=== PATIENT | male | born 1960 | race Caucasian/White ===

== ENCOUNTER 2019-04-09 17:37 | Emergency (ER) | payer BC, SELFPAY ==
[2019-04-09 17:41] VITALS: BP 138/82; PULSE 86; RESP 18; TEMP 36.5; O2SAT 97
--- NOTE | 2019-04-09 18:20 | ED.GENADUL_ITS ---
Discharge Plan Disposition Patient Disposition: HOME Condition: Fair Discharge Details Chief Complaint: Laceration Clinical Impression: Foreign body (FB) in soft tissue Primary Care Provider: Jayy Flynn ED Provider: Melyssa Chavez Home Meds and New Rx's Prescriptions: New cephalexin [Keflex] 500 mg capsule 500 mg PO QID Qty: 20 RF: 0 Continued albuterol sulfate [Ventolin HFA] 8 GM HFA aerosol inhaler 2 puff Inhalation Q6H PRN Qty: 2 RF: 6 Discharge Instructions Instructions: Soft Tissue Foreign Body (ED) Additional Instructions: Please keep wound clean, dry, covered. Monitor for signs of infection. Redness, warmth, drainage, increased pain, fever/chills. Please keep current dressing on for the next 24 hours and if that time he may cover with a Band-Aid. He will need follow-up with orthopedics, number listed below please call Friday to schedule follow-up appointment. Please take antibiotics as prescribed to help prevent infection. Referrals: Jayy Flynn, [Primary Care Provider] - Bar Parham MD [ [facility] STAFF PHYSICIAN] - Discharge Data Discharge Date/Time-TO BE ENTERED AT DEPARTURE: 04/09/19 20:17 Medical Decision Making Patient 38-year-old [id number] male presenting today with chief complaint of left forearm pain. He reports a prior to arrival he was hammering a nail piece of metal flew off and impaled him in the left forearm. Unknown tetanus status. Patient denies other injury the time of the incident. No numbness or weakness. On exam, he has a 1 cm linear laceration running horizontally across the base proximal ulnar side of the anterior forearm. Foreign body is palpable moving superior medial to this, patient is very tender in this area and bleeding began once compression was removed. Patient given Tylenol and ibuprofen for discomfort, we will send her over for an x-ray to evaluate foreign body. Tetanus updated today 4 mm foreign body noted on x-ray by radiologist. Patient and I discussed options for removal. We discussed the risk/benefits of exploration attempt to remove this. He voiced understanding and wished to proceed. Procedure note: Using standard sterile technique, 1% lidocaine with epinephrine was used to infiltrate the area. 5 cc was used. The sufficiently anesthetized the area. The area was then prepped and copiously irrigated with sterile saline. I attempted to remove foreign body but was unable to palpate this there externally or internally with fine forceps. Consult with Dr. Parham who advised to leave the foreign body in place, placed on antibiotics. Advised the patient may or may not need this removed at a future date depending on how bothersome this is to the patient. I discussed this plan with the patient was in agreement. He was given strict return precautions. In particular, we discussed signs and symptoms of infection that should prompt urgent evaluation once again. Advised he will need follow-up with orthopedics. We discussed activities to avoid. All his questions and concerns were addressed, he is in agreement this plan HPI General Mode of arrival: ambulatory . Date/Time Provider Initiated Documentation: 04/09/19 17:45 . Limitations to Documentation: no limitations . Information obtained by: patient, family (accompanied by ) and RN notes reviewed . History of Present Illness 58 year old M presents to the emergency department with the chief complaint of FB right forearm, described as moderate, with intensity rated at 4. Quality is described as burning, and is localized to the right and upper extremity. Patient reports no radiation. Patient started experiencing this minute(s) and it has been constant. No relieving factors improve symptom(s), No exacerbating factors reported . Patient notes no other symptoms.. Patient did receive the following treatments prior to arrival, none Related Data Home Medications Medication Instructions Recorded Confirmed albuterol sulfate [Ventolin HFA] 2 puff INHALATION Q6H PRN #2 12/26/15 04/09/19 inhaler cephalexin [Keflex] 500 mg PO QID #20 cap 04/09/19 Previous Rx's Medication Instructions Recorded cephalexin [Keflex] 500 mg PO QID #20 cap 04/09/19 Allergies Allergy/AdvReac Type Severity Reaction Status Date / Time diphenhydramine AdvReac Mild SHAKEY Unverified 04/09/19 17:45 General Stated Complaint: Laceration BRAD: 4 Review of Systems Constitutional Reports as per HPI, Denies chills and Denies fever(s) Musculoskeletal Reports as per HPI Integumentary/Breasts Reports as per HPI Neurologic Reports as per HPI, Denies sensory deficit and Denies paresthesias PFSH Surgical History Arthroplasty of knee NECK SURGERY Family History Mother Personal history of malignant neoplasm Heart disease Hyperlipidemia Father Heart disease Myocardial infarction Sister No problems noted. Sister No problems noted. Brother No problems noted. Brother No problems noted. Brother No problems noted. Grandfather Diabetes Heart disease Grandfather No problems noted. Grandmother Heart disease Grandmother No problems noted. Son Heart disease Social History Smoking/Tobacco Use Status: Never Drug use: Never Do you feel safe at home: Yes Do you feel safe in your relationship?: Yes Exam Const General: cooperative, healthy appearing, comfortable, no acute distress and well developed Nutritional Appearance: average body habitus and well nourished Orientation: alert and awake Resp Effort & Inspection: normal respiratory effort, able to speak in complete sentences and no respiratory distress Cardio Rate: regular rate Rhythm: regular rhythm Skin Trauma: laceration (5mm laceration anterior left forearm) Neuro General: alert and awake Cognition: normal cognition Speech: speech normal Gait: normal gait Sensory Exam: no sensory deficits noted Extrem General: abnormal to inspection (laceration as above), full ROM, normal capillary refill and no joint enlargement Left upper extremity: full ROM, normal capillary refill, no joint enlargement and elbow/forearm Details: tenderness (at area of laceration. Proximal to this is indurated 2cm x1cm), normal ROM and distal pulses intact Psych Appearance: grossly normal and well kempt Mental Status: mental status grossly normal Speech and Movement: speech and movement normal Course Vital Signs Temperature 36.5 C 04/09/19 17:41 Pulse 86 04/09/19 17:41 Respiratory Rate 18 04/09/19 17:41 Blood Pressure 138/82 04/09/19 17:41 Pulse Oximetry 97 04/09/19 17:41 Temperature 36.5 C 04/09/19 17:41 Temperature Source Skin 04/09/19 17:41 Pulse 86 04/09/19 17:41 Respiratory Rate 18 04/09/19 17:41 Blood Pressure 138/82 04/09/19 17:41 Blood Pressure Position Sitting 04/09/19 17:41 Pulse Oximetry 97 04/09/19 17:41 Oxygen Delivery Method Room Air 04/09/19 17:41 Oxygen Flow Rate 0 04/09/19 17:41 Pain Level 4 04/09/19 17:41
[2019-04-09] MEDS: Acetaminophen 500 MG TAB 1000 MG PO (18:24)
[2019-04-09] MEDS: Ibuprofen 600 MG TAB PO (18:25)
--- NOTE | 2019-04-09 18:40 | DI.RAD_ITS ---
SYMPTOM/DIAGNOSIS: FOREIGN BODY PROXIMAL ANTERIOR FOREARM LEFT FOREARM: Two views. There is a 4 mm. metallic foreign body in the soft tissues in the anterior forearm overlying the proximal ulna. No bone or joint abnormality is identified. IMPRESSION: Foreign body in the anterior soft tissues of the proximal forearm.
--- NOTE | 2019-04-09 19:02 | DI.VRAD_ITS ---
EXAM: XR Left Forearm EXAM DATE/TIME: 04/09/2019 6:40 PM CLINICAL HISTORY: 58 years old, male; Pain; Lower or forearm; Left; Patient HX: Metal fragment, today TECHNIQUE: Imaging protocol: XR Left forearm. Views: 2 views. COMPARISON: No relevant prior studies available. FINDINGS: Bones/joints: Normal. Soft tissues: 4 mm metallic structure in the soft tissues of the proximal forearm consistent with foreign body. IMPRESSION: Foreign body Dictated and Authenticated by: Kailey Diez MD. Ordering:JUDITH Ragsdale MD
[2019-04-09] MEDS: Cephalexin 500 MG CAP PO (20:11)
== END 2019-04-09 20:17 | disposition home or self-care (01) ==
PROVIDERS: Emergency Provider Physician Assistant; PCP Emergency Medicine
DX: S51.822A Laceration with foreign body of left forearm, initial encounter (principal); W45.8XXA Other foreign body or object entering through skin, initial encounter
CPT/HCPCS: 90471; 99283; 73090

== ENCOUNTER 2019-10-06 12:46 | Outpatient (CLI) | payer OTHER, SELFPAY ==
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
== END 2019-10-06 13:06 ==
PROVIDERS: PCP Emergency Medicine; Visit Provider Emergency Medicine
DX: M54.2 Cervicalgia (principal); S09.90XA Unspecified injury of head, initial encounter; M99.51 Intervertebral disc stenosis of neural canal of cervical region
CPT/HCPCS: 72050

== ENCOUNTER 2019-11-29 01:49 | Outpatient (CLI) | payer OTHER, BC, SELFPAY ==
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
== END 2019-11-29 02:09 ==
PROVIDERS: PCP Emergency Medicine; Visit Provider Emergency Medicine
DX: R20.0 Anesthesia of skin (principal); R29.898 Other symptoms and signs involving the musculoskeletal system; M50.30 Other cervical disc degeneration, unspecified cervical region; M47.812 Spondylosis without myelopathy or radiculopathy, cervical region; M25.78 Osteophyte, vertebrae
CPT/HCPCS: 72141

== ENCOUNTER 2021-03-10 11:04 | Outpatient (REF) | payer BC, SELFPAY | END 2021-03-10 11:05 | disposition home or self-care (01) | LOC: NCHCN 11:04 | PROVIDERS: PCP Emergency Medicine; Visit Provider Nurse Practitioner Family | DX: J02.9 Acute pharyngitis, unspecified (principal) | CPT/HCPCS: 87070 ==

== ENCOUNTER 2023-01-23 13:20 | Outpatient (CLI) | payer BC, SELFPAY ==
--- NOTE | 2023-01-23 13:15 | RT.EKG_ITS ---
APPROVED REPORT Exam: Resting ECG Reason for Exam: dizziness Patient Location: O HR:68 bpm ECG Measurements Heart Rate 68 AXIS [place] 195 P 46 QRSd 111 QRS -13 QT 389 T 12 QTc 414 Conclusion Sinus rhythm...normal P axis, V-rate 50- 99 Probable left atrial enlargement...P >50mS, RSR' in V1 or V2, probably normal variant
== END 2023-01-23 13:21 | disposition home or self-care (01) ==
LOC: DI.CM 13:22
PROVIDERS: PCP Nurse Practitioner Family; Visit Provider Nurse Practitioner Family
DX: R11.0 Nausea (principal); R42 Dizziness and giddiness
CPT/HCPCS: 93010

== ENCOUNTER 2023-01-23 16:16 | Outpatient (CLI) | payer BC, SELFPAY ==
[2023-01-23 15:08] LABS: Abs Immature Grans 0.02 10^3/uL (0.0-0.06); Absolute Basophil Count 0.05 10^3/uL (0.0-0.2); Absolute Eosinophil Count 0.14 10^3/uL (0.0-0.7); Absolute Lymphocyte Count 1.08 10^3/uL (1.2-3.4); Absolute Monocyte Count 0.79 10^3/uL (0.1-0.8); Absolute Neutrophil Count 4.96 10^3/uL (1.2-6.7); Basophils % 0.7; HCT 46.6 % (40.0-50.0); HGB 15.8 g/dL (13.5-17.5); Immature Grans % 0.3; Lymphocytes % 15.3; MCH 29.4 pg (27.0-33.0); MCHC 33.9 % (32.0-36.0); MCV 87 fL (80-95); MPV 9.7 fL (8.0-11.0); Monocytes % 11.2; Neutrophils % 70.5; Platelet Count 225 10^3/uL (130-400); RBC 5.38 10^6/uL (4.36-5.78); RDW-SD 40.7 fL; WBC 7.04 10^3/uL (4.4-10.8)
[2023-01-23 16:20] LABS: ALT 27 U/L (16-63); AST 10 U/L (15-37); Alkaline Phosphatase 74 U/L (46-116); Anion Gap 7.5 mmol/L (3-11); BUN 18 mg/dL (7-18); Bilirubin, Total 0.3 mg/dL (0.2-1.0); CO2 27.5 mmol/L (21.0-32.0); Calcium 9.3 mg/dL (8.5-10.1); Calculated LDL 170 mg/dL (<100); Chloride 102 mmol/L (98-107); Cholesterol 261 mg/dL (<200); Estimated GFR 85.63 (mL/min/1.73m2); Glucose 96 mg/dL (74-106); HDL Cholesterol 48 mg/dL (40-60); Potassium 4.4 mmol/L (3.5-5.1); Sodium 137 mmol/L (136-145); TSH (W/Ref FT4) 1.51 uIU/mL (0.36-3.74); Total Protein 7.5 g/dL (6.4-8.2); Triglyceride 216 mg/dL (<150)
== END 2023-01-23 16:17 | disposition home or self-care (01) ==
LOC: LBO 16:17
PROVIDERS: PCP Nurse Practitioner Family; Visit Provider Nurse Practitioner Family
DX: M54.2 Cervicalgia (principal); Q25.1 Coarctation of aorta; R00.2 Palpitations; R06.02 Shortness of breath; R07.89 Other chest pain; R11.0 Nausea; R41.0 Disorientation, unspecified; R42 Dizziness and giddiness; R51.9 Headache, unspecified; Z87.74 Personal history of (corrected) congenital malformations of heart and circulatory system
CPT/HCPCS: 36415; 80053; 80061; 84443; 85025

== ENCOUNTER 2023-01-24 01:20 | Outpatient (CLI) | payer BC, SELFPAY ==
--- NOTE | 2023-01-24 07:00 | DI.CT_ITS ---
Exam(s) CT BRAIN CTA EXAM: CT BRAIN CTA CLINICAL HISTORY: CONFUSION,DIZZINESS,NAUSEA,? STROKE OR TIA. TECHNIQUE: Imaging Protocol: Axial CT angiography was performed with multi-slice acquisition and mu lti-planar and/or 3D reconstructions. CONTRAST MATERIAL: Intravenous: Omnipaque 350 contrast volume:85 mL COMPARISON: No exams were available for comparison FINDINGS: CT Head W and w/O: Ventricles and Extra axial spaces: Normal in size and morphology for the patient's age. Hemorrhage: None. Cerebral parenchyma: No acute territorial infarct is seen. Midline shift: None. Brainstem/Cerebellum: Normal. Calvarium: Normal. Visualized Paranasal sinuses/Mastoids: Clear. Soft Tissues: Unremarkable. Enhancement: Unremarkable. CTA Brain W: Internal Carotid Arteries: There is no aneurysm, occlusion or significant stenosis. Anterior Cerebral Arteries: Right: No aneurysm, occlusion or significant stenosis. Left: No aneurysm, occlusion or significant stenosis. Middle Cerebral Arteries: Right: No aneurysm, occlusion or significant stenosis. Left: No aneurysm, occlusion or significant stenosis. Posterior cerebral Arteries: Right: No aneurysm, occlusion or significant stenosis. The right posterior cerebral artery arises fr om the right PCOM. This is a normal variant. Left: No aneurysm, occlusion or significant stenosis. Vertebral Arteries: Right: No aneurysm, occlusion or significant stenosis. There is a dominant right vertebral artery. Left: No aneurysm, occlusion or significant stenosis. Basilar Artery: No aneurysm, occlusion or significant stenosis. IMPRESSION: 1. No evidence of large vessel occlusion or significant stenosis on the CT angiography of the head. 2. No acute intracranial process. RADIATION DOSE DELIVERED: 1,924.93mGy.cm Total DLP DATA REPOSITORY: All CT scans at this facility are submitted to the National Radiology Data Registry (NRDR) Dose Index Registry (DIR) with the [employer] (A[employer]). RADIATION OPTIMIZATION: All CT scans at this facility use at least one of these dose optimization te chniques: automated exposure control; mA and/or kV adjustment per patient size (includes targeted exa ms where dose is matched to clinical indication); or iterative reconstruction.
[2023-01-24] MEDS: Normal Saline - Diluent 50 ML VIAL IJ (08:33)
[2023-01-24] MEDS: Omnipaque 350 MG/ML 100 ML BTL IJ (08:34)
[2023-01-24] MEDS: Normal Saline Flush 10 ML SYR IVP (08:38)
== END 2023-01-24 01:40 ==
LOC: DI 01:21
PROVIDERS: PCP Nurse Practitioner Family; Visit Provider Nurse Practitioner Family
DX: R51.9 Headache, unspecified (principal); R41.0 Disorientation, unspecified; R42 Dizziness and giddiness; R11.0 Nausea
CPT/HCPCS: 70496; J3490

== ENCOUNTER 2023-01-27 00:52 | Outpatient (CLI) | payer BC, SELFPAY ==
--- NOTE | 2023-01-27 06:43 | ETT_ITS ---
APPROVED REPORT Exam: Exercise Treadmill Patient Location: Out-Patient Room/Bed: Stress Nurse: Michelle Romeo Ordering Provider:VINNY SINGER, Contact Number: [phone] BMI: 27.19 Baseline Rhythm: Sinus Rhythm Comment: 1st AVB Indications: SOB, Chest pressure, palpitations, Hyperlipidemia, S/P Aortic Coarctation Repair Medical History Medical History: HLD, Exercise Induced Asthma, HTN, Narrowing of the aorta (Congenital) Cardiac Medications: Albuterol Sulfate Allergies: Diphenhydramine Cardiac Risk Factors: Family Hx, HTN, HLD, Asthma Previous Cardiac Procedures: Surgical repair of coarctation of the aorta (1976) Pretest Chest Pain Characteristics: None Exercise History: Physically active Physical Disabilities: None Lung Sounds: Clear to auscultation Heart Sounds: Regular Stress Test Details Test: Exercise stress testing was performed using a Kush protocol. Rest Stress HR Resting HR Supine: 65 bpm Max Heart Rate (APMHR): 159 bpm Resting HR Standin bpm Target HR (85% APMHR): 135 bpm Max HR Achieved: 154 bpm % of APMHR: 97 Recovery HR: 86 bpm HR response to stress: Normal HR response to stress BP Resting BP Supine: 148/82 mmHg Resting BP Standin/90 mmHg Max BP: 210/78 mmHg Recovery BP: 160/78 mmHg BP response to stress: Normal blood pressure response to stress. ECG Resting ECG: Sinus Rhythm, 1st degree AV block Ectopy: None Stress ECG: Sinus Rhythm, 1st degree AV block ST Change: No significant ST segment changes noted Arrhythmia: None Recovery ECG: Sinus Rhythm, 1st degree AV block Recovery ST Change: No significant ST segment changes noted Recovery Arrhythmia: None Clinical Reason for Termination: Fatigue Stress Symptoms: None Exercise duration: 10 min59 sec Highest Stage Reached: Stage 4: 4.2 mph at 16% grade. Exercise capacity: 13.42 METs Functional Capacity: Average Capacity Angina Score: None Moore Treadmill Score: 9.3 Rate Pressure Product: [id number] Stress ECG Conclusion 1. The resting electrocardiogram showed an incomplete right bundle branch block 2. Patient exercised on the Kush protocol completed a workload of 13.42 METS 3. Normal heart rate and blood pressure response to exercise. The patient achieved 97% of predicted heart rate for age 4. There was no electrocardiographic evidence of myocardial ischemia 5. There were no significant dysrhythmias Moore Treadmill Score is 9.3 which is Low risk. Stress Test Summary STAGE Time (mins) Speed (mph) Grade (%) HR BP SpO2 SYMPTOMS METS Supine 65 148/82 97 Standing 68 148/90 98 1 3 1.7 10 101 170/62 97 4.5 2 6 2.5 12 119 180/78 7 3 9 3.4 14 133 190/64 10 1 min recovery 128 210/78 92 3 min recovery 84 190/80 97 6 min recovery 86 160/78
== END 2023-01-27 01:12 ==
LOC: DI 00:52
PROVIDERS: PCP Nurse Practitioner Family; Visit Provider Nurse Practitioner Family
DX: E78.5 Hyperlipidemia, unspecified (principal); M54.2 Cervicalgia; Q25.1 Coarctation of aorta; R00.2 Palpitations; R06.02 Shortness of breath; R07.89 Other chest pain; R41.0 Disorientation, unspecified; R51.9 Headache, unspecified; Z87.74 Personal history of (corrected) congenital malformations of heart and circulatory system
CPT/HCPCS: 93017

== ENCOUNTER 2023-03-20 01:13 | Outpatient (CLI) | payer BC, SELFPAY ==
--- NOTE | 2023-03-20 06:54 | DI.US_ITS ---
APPROVED REPORT EXAM: Comprehensive 2D, Doppler, and color-flow Echocardiogram Patient Location: Out-Patient Class B Truck Driver: Chon Stoll RDMS, RVT Indications: new onset SOB, chest pressure, palpitations, s/p aortic coarctation repair Other Information Study Quality: Adequate Conclusion Normal left ventricular wall thickness and chamber size. Ejection fraction is 60%. Wall motion is n ormal Normal right ventricular size and systolic function Left atrium is borderline dilated. Right atrial size is normal Aortic valve is bicuspid without stenosis or regurgitation Wall motion Left Ventricle The left ventricle is normal size. The left ventricular systolic function is normal. The left ventric ular ejection fraction is within the normal range. There is normal left ventricular wall thickness. T here is normal LV segmental wall motion. There is no ventricular septal defect visualized. LVEF is 60 %. Right Ventricle The right ventricle is normal size. Right ventricular systolic function is grossly normal. Unable to assess PA pressure. Atria Left atrium is borderline dilated. The right atrium size is normal. The interatrial septum is intact with no evidence for an atrial septal defect. Aortic Valve Aortic valve is bicuspid. There is no aortic valvular stenosis. No aortic regurgitation is present. Mitral Valve The mitral valve is normal in structure. No evidence of mitral valve stenosis. Mild mitral regurgita tion. Tricuspid Valve The tricuspid valve is normal in structure. There is no tricuspid valve stenosis. Trace tricuspid reg urgitation. Pulmonic Valve The pulmonary valve is normal in structure. There is no pulmonic valvular stenosis. There is no pulmo juan valvular regurgitation. Great Vessels The aortic root is normal in size. The ascending aorta is normal in size. Aortic arch is normal in ca liber. IVC is normal in size and collapses >50% with inspiration. Pericardium There is no pericardial effusion. 2D Dimensions IVSD d PLAX 0.48 cm M: 0.6-1.2 LV Vol A2C d MOD 71.2 mL LVPW d PLAX 0.50 cm M: 0.6 - 1.2 LV Vol A4C d MOD 106.9 mL LVID d PLAX 5.61 cm M: 4.2 - 5.8 LA vol/ BSA A4C s A-L 35.0 mL/m2 LVDs 3.90 cm M: 2.5 - 4.0 LA Area A4C s MOD 21.61 cm2 Ao Root d 3.08 cm M: 3.1 - 3.7 LV EF A4C MOD 56.4 % Ao Asc Diam d 3.18 cm M: 2.6 - 3.4 LV EF A2C MOD 59.2 % LV EF Teichholz 57.0 % LV EF Biplane MOD 58.2 % LVEF (Horan's) 58.23 % M: 52 - 72 SV 52.38 mL LV Volume 67.27 mL M: 62 - 150 SV Index 25.97 mL/m2 LV Volume Index 33.30 mL/m2 M: 34 - 74 LV Vol Biplane MOD 89.9 mL FS 30.25 % M-Mode TAPSE 3.01 cm (M/F) >1.7 LV Diastology MV E' medial 0.156 (>0.07 m/s) E/A Ratio 1.1 LV E/e MED 4.40 (<14) MV E Vmax 0.69 (0.4-1.3 m/s) MV E' lateral 0.126 (>0.1 m/s) MV A Vmax 0.65 (0.4-1.3 m/s) LV E/e LAT 5.45 (<14) MV E/A Ratio 1.00 MV E/E' medial 4.41 MV E/E' lateral 5.49 Aortic Valve LVOT Area 3.54 cm2 AoV Area Vmax 3.59 cm2 LVOT Vmax 1.55 m/s AoV Area/ BSA (Vmax) 1.78 cm2/m2 LVOT Mean Ever. 0.93 m/s CELESTE Mean Ever. 3.14 cm2 LVOT Peak Grad 9.6 mmHg CELESTE Mean Ever. Index 1.55 cm2/m2 LVOT Mean Grad 4.3 mmHg LVOT VTI 0.335 m LVOT Diam s 2.10 cm AoV Vmax 1.52 m/s Velocity Ratio 1.02 AoV Mean Ever. 1.05 m/s AoV Peak Grad 9.3 mmHg LVOT SV 118.69 mL AoV Mean Grad 4.9 mmHg AoV VTI 0.328 m AoV Area VTI 3.62 cm2 AoV Area/ BSA (VTI) 1.80 cm/m2 Mitral Valve MV DT 209 (160-240 msec) MV PHT 61 msec MV Area PHT 3.62 cm2 Pulmonary Valve PV Vmax 1.44 (0.5-1.5 m/s) RVOT Peak Gr. 1.35 mmHg PV Peak Grad 8.3 mmHg RVOT Mean Gr. 0.65 mmHg PV Mean Grad 4.0 mmHg RVOT VTI 0.131 m PV VTI 0.252 m RVOT Vmax 0.58 m/s Tricuspid Valve RA Pressure 3.00 mmHg
== END 2023-03-20 01:33 ==
LOC: DI 01:13
PROVIDERS: PCP Nurse Practitioner Family; Visit Provider Nurse Practitioner Family
DX: E78.5 Hyperlipidemia, unspecified (principal); M54.2 Cervicalgia; Q25.1 Coarctation of aorta; R00.2 Palpitations; R06.02 Shortness of breath; R07.89 Other chest pain; R41.0 Disorientation, unspecified; R51.9 Headache, unspecified; Z87.74 Personal history of (corrected) congenital malformations of heart and circulatory system
CPT/HCPCS: 93306

== ENCOUNTER 2023-09-02 03:17 | Outpatient (CLI) | payer BC, SELFPAY ==
[2023-09-03 18:24] LABS: PSA, Screening 4.6 ng/mL (<=4.5)
== END 2023-09-02 03:18 | disposition home or self-care (01) ==
LOC: LBO 03:17
PROVIDERS: PCP Nurse Practitioner Family; Visit Provider Nurse Practitioner Family
DX: Z12.5 Encounter for screening for malignant neoplasm of prostate (principal)
CPT/HCPCS: 36415; 84153

== ENCOUNTER 2023-09-15 12:57 | Outpatient (REF) | payer BC, SELFPAY ==
[2023-09-15 14:34] LABS: Bilirubin Negative (Negative); Blood Trace-intact (Negative); Clarity Clear (Clear); Glucose Negative (Negative); Ketones Negative (Negative); Leukocyte Esterase Negative (Negative); Nitrite Negative (Negative); Specific Gravity 1.025 (1.005-1.025); Urobilinogen 0.2 mg/dL (Up to 0.2); pH 5.5 (5-8)
[2023-09-15 14:50] LABS: Bacteria Rare HPF (Negative); Epithelial Cells Negative HPF (Negative); Other Cells Negative (Negative); RBC 0-2 HPF (0-2); WBC Negative HPF (0-5)
[2023-09-15 14:51] LABS: C & S Indicated? No; Casts Negative LPF (Negative); Crystals Negative HPF (Negative); Mucus Negative (Negative)
== END 2023-09-15 12:58 | disposition home or self-care (01) ==
LOC: LBN 12:57
PROVIDERS: PCP Nurse Practitioner Family; Visit Provider Nurse Practitioner Gerontology
DX: R31.29 Other microscopic hematuria (principal)
CPT/HCPCS: 81003; 81015

== ENCOUNTER 2023-10-15 04:18 | Outpatient (CLI) | payer BC, SELFPAY ==
[2023-10-16 17:40] LABS: Free PSA/PSA Ratio 0.24 ratio
== END 2023-10-15 04:19 | disposition home or self-care (01) ==
LOC: LBO 04:18
PROVIDERS: PCP Nurse Practitioner Family; Visit Provider Nurse Practitioner Gerontology
DX: R97.20 Elevated prostate specific antigen [PSA] (principal)
CPT/HCPCS: 36415; 84154

== ENCOUNTER → 2024-02-16 13:11 | Outpatient (CLI) | payer BC, SELFPAY ==
--- NOTE | 2024-02-16 08:30 | DI.RAD_ITS ---
Exam(s) XR HIP RT COMPLETE AP PELVIS EXAM: XR HIP RT COMPLETE AP PELVIS CLINICAL HISTORY: Rt hip pain, M25.551, continued pain despite PT. TECHNIQUE: 2D digital imaging was performed. Two views COMPARISON: No exams were available for comparison FINDINGS: BONES: No acute fracture is present. No bony destructive lesion is seen. JOINTS: No dislocation present. Severe degenerative changes the right superior hip joint space. Yesy articular spurring and sclerosis. Subchondral cysts noted on both sides of the joint. There are mod erate degenerative changes of the left hip. The SI joints and pubic symphysis are unremarkable. Degenerative changes also noted in the lower lumbar spine. SOFT TISSUE: Normal. IMPRESSION: Severe degenerative changes of the right hip. DATA REPOSITORY: RADIATION DOSE DELIVERED:
== END ==
PROVIDERS: PCP Nurse Practitioner Family; Visit Provider Nurse Practitioner Family
DX: M16.11 Unilateral primary osteoarthritis, right hip (principal)
CPT/HCPCS: 73502

== ENCOUNTER 2024-04-14 01:57 | Outpatient (CLI) | payer BC, SELFPAY ==
[2024-04-14 08:40] LABS: Anion Gap 8.6 mmol/L (3-11); BUN 24 mg/dL (7-18); CO2 29.4 mmol/L (21.0-32.0); Calcium 9.4 mg/dL (8.5-10.1); Calculated LDL 142 mg/dL (<100); Chloride 102 mmol/L (98-107); Cholesterol 233 mg/dL (<200); Glucose 93 mg/dL (74-106); HDL Cholesterol 68 mg/dL (40-60); Potassium 3.8 mmol/L (3.5-5.1); Sodium 140 mmol/L (136-145); Triglyceride 116 mg/dL (<150)
[2024-04-14 17:58] LABS: PSA, Diagnostic 3.2 ng/mL (<=4.5)
== END 2024-04-14 01:58 | disposition home or self-care (01) ==
LOC: LBO 01:57
PROVIDERS: Nurse Practitioner Gerontology; PCP Nurse Practitioner Family; Visit Provider Nurse Practitioner Family
DX: E78.5 Hyperlipidemia, unspecified (principal); I10 Essential (primary) hypertension; N40.1 Benign prostatic hyperplasia with lower urinary tract symptoms; N13.8 Other obstructive and reflux uropathy; R97.20 Elevated prostate specific antigen [PSA]
CPT/HCPCS: 36415; 80048; 80061; 84153

== ENCOUNTER 2024-08-02 03:25 | Outpatient (CLI) | payer BC, SELFPAY ==
[2024-08-02 09:57] LABS: HCT 46.2 % (40.0-50.0); HGB 15.4 g/dL (13.5-17.5); MCH 29.6 pg (27.0-33.0); MCHC 33.3 % (32.0-36.0); MCV 89 fL (80-95); MPV 10.2 fL (8.0-11.0); Platelet Count 226 10^3/uL (130-400); RDW-SD 42.3 fL; WBC 4.98 10^3/uL (4.4-10.8)
[2024-08-02 10:47] LABS: Anion Gap 8.6 mmol/L (3-11); BUN 23 mg/dL (7-18); CO2 28.4 mmol/L (21.0-32.0); CREATININE 1.1 mg/dL (0.70-1.30); Calcium 9.1 mg/dL (8.5-10.1); Chloride 103 mmol/L (98-107); Glucose 97 mg/dL (74-106); Potassium 4.4 mmol/L (3.5-5.1); Sodium 140 mmol/L (136-145)
== END 2024-08-02 03:26 | disposition home or self-care (01) ==
LOC: LBO 03:25
PROVIDERS: PCP Nurse Practitioner Family; Visit Provider Student in an Organized Health Care Education/Training Program
DX: M16.11 Unilateral primary osteoarthritis, right hip (principal); Z01.818 Encounter for other preprocedural examination
CPT/HCPCS: 36415; 80048; 85027

== ENCOUNTER 2024-08-18 06:04 | Day surgery (SDC) | payer BC, SELFPAY ==
[2024-08-18] VITALS (20 sets, daily range): BP systolic 107–133; BP diastolic 52–78; PULSE 48–80; RESP 12–23; TEMP 36–36.7; O2SAT 95–100; BMI 25.2
--- NOTE | 2024-08-18 06:14 | W.ANESPRE ---
General Info Date of Service Date Performed: 08/18/24 Height: 5 ft 11 in Weight: 81.9 kg Body Mass Index (BMI): 25.2 Surgical Procedure: Operation Date: 08/18/24 07:50 Proposed Procedure Side Surgeon p Hip Total Hip Anterior, ACTIS Right Bar Parham MD Meds Allergies and Home Medications Allergies Allergy/AdvReac Type Severity Reaction Status Date / Time diphenhydramine AdvReac Mild SHAKEY Verified 08/18/24 06:17 Home Medication ?Medication ?Instructions ?Recorded amoxicillin 500 mg tablet 2,000 mg PO ONCE 12/02/19 albuterol sulfate 90 mcg/actuation 2 puff inhalation Q6H PRN ##2 12/08/19 aerosol inhaler (Ventolin HFA) hydroxyzine HCl 10 mg tablet 10 mg PO QHS PRN anxiety #30 tabs 02/10/23 tamsulosin 0.4 mg capsule (Flomax) 0.4 mg PO DAILY #90 caps 04/21/24 celecoxib 200 mg capsule 200 mg PO BID #60 caps 07/15/24 Current Visit Medications: Current Medications Generic Name Dose Route Start Last Admin Trade Name Freq PRN Reason Stop Dose Admin Acetaminophen 1,000 mg 08/18/24 06:00 Acetaminophen 500 Mg Tab PO 08/18/24 18:00 PREOP PRICILA Celecoxib 400 mg 08/18/24 06:00 Celecoxib 200 Mg Cap PO 08/18/24 18:00 PREOP PRICILA Gabapentin 300 mg 08/18/24 06:00 Gabapentin 300 Mg Cap PO 08/18/24 18:00 PREOP PRICILA Ringer's Solution 1,000 mls @ 80 mls/hr 08/18/24 06:00 IV 09/16/24 23:59 INFUSION PRICILA Cefazolin Sodium/Dextrose 2 gm in 50 mls @ 100 mls/hr 08/18/24 06:00 Ancef Duplex IVPB 08/18/24 18:00 PREOP PRICILA Tranexamic Acid/Sodium Chloride 1,000 mg in 100 mls @ 600 mls/hr 08/18/24 06:00 IVPB 08/18/24 18:00 PREOP PRICILA IV Miscellaneous Supplies 1 each 08/18/24 06:00 Iv Access IV 09/16/24 23:59 DIRECTED PRICILA Sodium Chloride 0 ml 08/18/24 06:00 Normal Saline Flush 10 Ml Syr IV 09/16/24 23:59 PRN PRN Sodium Chloride 0 ml 08/18/24 06:00 Normal Saline 10 Ml Vial IJ 09/16/24 23:59 DIRECTED PRN Sterile Water 0 ml 08/18/24 06:00 Water,Injection,Sterile 10 Ml Vial IJ 09/16/24 23:59 DIRECTED PRN PFSH Active Problems Active Problems: Problem Status Onset Code Degenerative joint disease of right hip Chronic M16.11 Bilateral tinnitus Acute H93.13 Right hip pain Acute M25.551 BPH w urinary obs/LUTS Acute N40.1, N13.8 Elevated PSA Acute R97.20 Screening for prostate cancer Acute Z12.5 Other mucopurulent conjunctivitis, right eye Acute H10.021 Sciatic leg pain Acute M54.30 Cubital tunnel syndrome on left Acute G56.22 Carpal tunnel syndrome of left wrist Acute G56.02 Cervical radiculopathy at C6 Acute M54.12 Screening for colorectal cancer Acute Z12.11, Z12.12 Medical History Medical History (Updated 04/09/24 @ 08:05 by Jackie Mccollum) Hyperlipidemia Exercise-induced asthma (02/25/14) Essential hypertension (08/23/13) Exercise-induced asthma Depression with anxiety remote Coarctation of aorta s/p surgery at age 14 Hyperlipidemia Hypertension Surgical History Surgical History (Updated 08/16/24 @ 14:19 by Aisha Wiseman RN) History of colonoscopy History of arthroscopy of knee Status post aortic coarctation repair age 14 S/P left knee arthroscopy Tobacco Smoking/Tobacco Use Status: Never Passive smoking exposure: Yes Second hand exposure: Yes Alcohol Alcohol Intake: current Alcohol intake frequency: a few times a month Alcohol type: wine Substance Use Substance use: Never Substance use type: does not use Vital Signs and Lab Results Vital Signs Most Recent Vital Signs in EMR: Temp Pulse Resp BP Pulse Ox 36.7 C 57 L 16 131/69 96 08/18/24 06:41 08/18/24 06:41 08/18/24 06:41 08/18/24 06:41 08/18/24 06:41 Lab Results Blood Type / Crossmatch: No Data to Display Complete Blood Count: White Blood Count 4.98 10^3/uL (4.4-10.8) 08/02/24 09:37 Red Blood Count 5.20 10^6/uL (4.36-5.78) 08/02/24 09:37 Hemoglobin 15.4 g/dL (13.5-17.5) 08/02/24 09:37 Hematocrit 46.2 % (40.0-50.0) 08/02/24 09:37 Platelet Count 226 10^3/uL (130-400) 08/02/24 09:37 Complete Metabolic Panel: Sodium 140 mmol/L (136-145) 08/02/24 09:37 Potassium 4.4 mmol/L (3.5-5.1) 08/02/24 09:37 Chloride 103 mmol/L (98-107) 08/02/24 09:37 Carbon Dioxide 28.4 mmol/L (21.0-32.0) 08/02/24 09:37 BUN 23 mg/dL (7-18) H 08/02/24 09:37 Creatinine 1.1 mg/dL (0.70-1.30) 08/02/24 09:37 Est GFR (CKD-EPI 2020) 75.90 (mL/min/1.73m2) 08/02/24 09:37 Calcium 9.1 mg/dL (8.5-10.1) 08/02/24 09:37 Glucose 97 mg/dL (74-106) 08/02/24 09:37 Liver Function Panel: No Data to Display Coagulation Panel: No Data to Display Cardiac Panel: No Data to Display Arterial Blood Gas: No Data to Display Venous Blood Gas: No Data to Display Pancreas Panel: No Data to Display Thyroid Panel: No Data to Display Infectious Disease: No Data to Display Blood Cultures: No Data to Display Toxicology Panel: No Data to Display Imaging and Studies Imaging and Studies Study information below may be from another EMR and interpreted by another provider. Please see original notes in EMR for more complete details. EKG Summary: 01/23/23 Conclusion Sinus rhythm...normal P axis, V-rate 50- 99 Probable left atrial enlargement...P >50mS, RSR' in V1 or V2, probably normal variant Stress Test Summary: 01/27/23 Stress ECG Conclusion 1. The resting electrocardiogram showed an incomplete right bundle branch block 2. Patient exercised on the Kush protocol completed a workload of 13.42 METS 3. Normal heart rate and blood pressure response to exercise. The patient achieved 97% of predicted heart rate for age 4. There was no electrocardiographic evidence of myocardial ischemia 5. There were no significant dysrhythmias Moore Treadmill Score is 9.3 which is Low risk. Echocardiogram Summary: 03/20/23 Conclusion Normal left ventricular wall thickness and chamber size. Ejection fraction is 60%. Wall motion is normal Normal right ventricular size and systolic function Left atrium is borderline dilated. Right atrial size is normal Aortic valve is bicuspid without stenosis or regurgitation Anesthesia Assessment and Plan Anesthesia History Personal History: No History of Anesthesia Complications Family History: No Family History of Anesthesia Complications Exercise Tolerance Exercise Tolerance: Metabolic Equivalents>4 Pertinent Negatives Pertinent Negatives: No Symptoms of GERD, No Major Cardiovascular Symptoms or Complaints, No Major Pulmonary Symptoms or Complaints and No History of CVA/TIA Cardiac & Pulmonary Exam Cardiac Exam: Normal S1/S2 Heart Sounds Pulmonary Exam: Clear Bilateral Breath Sounds Implantable Cardiac Device Does patient have a Pacemaker or an ICD?: No Airway Exam Known Difficult Airway: No Mallampati Class: 3 Mouth Opening: Normal (> 3cm) Thyromental Distance: Greater than 3 cm Neck Range of Motion: Full ROM Neck Circumference: Normal Teeth Condition: Normal Dentition ASA Classification ASA Score: ASA 2 Emergency Case?: No NPO Status NPO Status: NPO Clears >2 hours, Solids >8 hours Anesthesia Plan Resuscitation Status: Full Code Anesthesia Technique: Spinal Anesthesia Airway Planned: Natural Airway Monitors Used: Standard Monitors Preoperative Comments:: 63 yo male for MISTY. Sig PMHx: HTN, coarc Ao repair at 14, asthma (albuterol), Neck pain (degen changes c-spine, narrowing at C5-6. Has seen [facility] neuro), never smoker, occ EtOh. EKG: sinus ECHO: LVEF 60%, Bicuspid AoV without stenosis. Stress: 13.42 Mets, no evidence of ischemia. PFTS: Normal.
[2024-08-18] MEDS: Acetaminophen 500 MG TAB 1000 MG PO (06:52)
[2024-08-18] MEDS: Celecoxib 200 MG CAP 400 MG PO (06:52)
[2024-08-18] MEDS: Gabapentin 300 MG CAP PO (06:52)
[2024-08-18] MEDS: Lactated Ringers 1,000 ML 80 ML IV (07:05)
--- NOTE | 2024-08-18 07:13 | W.PM.DSUDISC ---
Date of service: 09/08/24 Time of Service: 07:13 Discharge Plan Disposition Patient Disposition: Home Condition: Good Discharge Details Reason For Visit: R THR Attending Provider: Bar Parham Primary Care Provider: Jono Timmons Home Meds and New Rx's Prescriptions: New acetaminophen 500 mg tablet 1,000 mg PO TID Qty: 90 3RF aspirin 81 mg tablet,delayed release (DR/EC) 81 mg PO BID Qty: 60 0RF celecoxib 200 mg capsule 200 mg PO BID Qty: 60 0RF pantoprazole 40 mg tablet,delayed release (DR/EC) 40 mg PO DAILY Qty: 30 0RF dexamethasone 4 mg tablet 4 mg PO DAILY Qty: 2 0RF oxycodone 5 mg tablet 5 mg PO Q4H MDD 6 tabs PRN (Reason: pain) Qty: 20 0RF Continued amoxicillin 500 mg tablet 2,000 mg PO ONCE Rx Instructions: For dental albuterol sulfate [Ventolin HFA] 90 mcg/actuation HFA aerosol inhaler 2 puff Inhalation Q6H PRN Qty: 2 6RF hydroxyzine HCl 10 mg tablet 10 mg PO QHS PRN (Reason: anxiety) Qty: 30 2RF Rx Instructions: Take 0.5-2 tabs po HS prn anxiety tamsulosin [Flomax] 0.4 mg capsule 0.4 mg PO DAILY Qty: 90 3RF Discontinued celecoxib 200 mg capsule 200 mg PO BID Qty: 60 1RF Discharge Instructions Additional Instructions: Total Hip Discharge Instructions Activity: The most important activity is to walk. You should try to take short walks a few times a day. You have no restrictions on movement or positioning, but do not try to force what you do. You will find some stiffness and weakness with hip flexion (lifting your knee). Do not try to strengthen this too early, continue to practice walking and stairs and this will come. - Outpatient physical therapy can be helpful to help return you to a normal gait and improve your flexibility and strength. This can start around 2 weeks. For some patients, it?s not necessary. Usually this is determined at the time of discharge or at the first post-operative visit. - You should wear the JUANA hose on both legs for 2 weeks. Dressing: Keep the surgical dressing in place for at least one week. After the first week it may be removed and replace with light gauze and tape or nothing. It may get wet after 3 days but avoid soaking the dressing. If it gets wet, just lightly pat dry. It is important to always keep some gauze between skin folds, especially when you are sitting. Spend some time with the wound exposed when you are lying flat as the incision does wrinkle onto itself. Medications: - You should take Tylenol and an anti-inflammatory Celebrex as your primary pain control medications. If the Celebrex is too expensive or not covered, please call the office for another alternative (Advil/Ibuprofen or Naproxen/Aleve). - You have been prescribed a stronger pain medication Oxycodone for breakthrough pain, take as needed as prescribed. - You have also been prescribed a stomach acid reduction agent Pantoprozole to help reduce stomach acid and reflux. - You have also been prescribed Decadron to help with post-operative nausea and pain. You will take this for two days starting tomorrow. - You will be taking Aspirin 81mg twice a day for DVT prevention unless instructed otherwise. - If you have constipation you should take Colace or Miralax (both [id number]). It takes most people 3-4 days to have a bowel movement. Follow-up: 2 weeks If you have any acute concerns or questions, please do not hesitate to contact the office at [phone]. You may contact Dr. Parham with any questions after hours through the hospital at [phone] or on his cell phone at [phone]. Referrals: Bar Parham MD [ [facility] STAFF PHYSICIAN] - Equipment/Supplies: Walker Activity:: Activity as Tolerated Shower/Bathe:: 72 hours Diet:: As Tolerated Discharge Orders Discharge Orders: Discharge Order (Routine); Ordered 08/18/24 Ordered By: Lee Campuzano DS: Diagnosis Discharge Diagnosis (1) Degenerative joint disease of right hip: Status: Chronic
--- NOTE | 2024-08-18 07:15 | HPE_ITS ---
Assessment and Plan Assessment and plan (1) Degenerative joint disease of right hip: Status: Chronic Assessment and plan: Wilfrid is an active 63-year-old male who has arthritis about the right hip. He has no acute medical issues which would prevent proceeding with surgery today. Once again I reviewed hip replacement with him. I discussed the technical details. I reviewed the risk to include bleeding, infection, pain, stiffness, instability, fracture, damage to nerves or vessels, damage to muscle and tendons, blood clot, leg length inequality, need for repeat procedures. Despite these risk, he elects to proceed. History of Present Illness Narrative: Wilfrid is a 63-year-old male who presents today for his right hip. Please to the previous office note for complete detailed history. He has severe arthritic change about the right hip causing daily dysfunction and pain. He has failed other nonoperative options and is here today for hip replacement. He denies any acute changes to his medical history. He denies chest pain or shortness of breath. He does have some history of sciatica as well as some history of cervical radiculopathy, both of which are not currently active. Review of Systems All systems reviewed & are unremarkable except as noted in HPI and below PFSH All Active Problems Degenerative joint disease of right hip (Chronic) Depo-medrol injection: 04/09/24 Bilateral tinnitus (Acute) Right hip pain (Acute) severe degenerative changes BPH w urinary obs/LUTS (Acute) Elevated PSA (Acute) 09/04/23 4.6 Screening for prostate cancer (Acute) Other mucopurulent conjunctivitis, right eye (Acute) [facility] 04/01/23 -hb Sciatic leg pain (Acute) right side Cubital tunnel syndrome on left (Acute) Carpal tunnel syndrome of left wrist (Acute) Cervical radiculopathy at C6 (Acute) Screening for colorectal cancer (Acute) Medical History Hyperlipidemia Exercise-induced asthma (02/25/14) Essential hypertension (08/23/13) Exercise-induced asthma Depression with anxiety remote Coarctation of aorta s/p surgery at age 14 Hyperlipidemia Hypertension Surgical History History of colonoscopy History of arthroscopy of knee Status post aortic coarctation repair age 14 S/P left knee arthroscopy Family History Mother Personal history of malignant neoplasm BREAST Heart disease Hyperlipidemia Father Heart disease Myocardial infarction Sister No problems noted. Sister No problems noted. Brother No problems noted. Brother No problems noted. Brother No problems noted. Grandfather Diabetes Heart disease Grandfather No problems noted. Grandmother Heart disease Grandmother No problems noted. Son Heart disease Social History Smoking/Tobacco Use Status: Never Second Hand Exposure: Yes Smoking risk assessment performed?: Yes Alcohol Intake: current Alcohol Intake frequency: a few times a month Alcohol type: wine Drug use: Never Substance use type: does not use Household members: spouse Housing: house Communication Needs: None Do you need help understanding health information?: Never current occupation: [employer] Pets and animals: Yes Pets and animals: dog(s) Do you think of yourself as: straight/heterosexual Current gender identity: male What is your relationship status?: How often do you talk on the phone with friends or family?: three or more times per week How often do you get together with friends or relatives?: twice per week How often do you attend tenriism or anabaptist services?: decline to answer Do you belong to any clubs or organized social groups?: no Panel score (0-1 are the most socially isolated patients): 2 What type of physical activity do you participate in: walking Duration: 15-30 minutes/day Frequency: daily Marisela/Religious: No preference Special marisela needs: No Seatbelt use: always Helmet use: Yes Helmet use: always 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 Additional Social history: [employer] Meds Allergies and Home Medications Allergies Allergy/AdvReac Type Severity Reaction Status Date / Time diphenhydramine AdvReac Mild SHAKEY Verified 08/18/24 06:17 Home Medications ?Medication ?Instructions ?Recorded ?Confirmed ?Type amoxicillin 500 mg tablet 2,000 mg PO ONCE 12/02/19 08/18/24 History albuterol sulfate 90 mcg/actuation 2 puff inhalation Q6H PRN ##2 12/08/19 08/18/24 Rx aerosol inhaler (Ventolin HFA) hydroxyzine HCl 10 mg tablet 10 mg PO QHS PRN anxiety #30 tabs 02/10/23 08/18/24 Rx tamsulosin 0.4 mg capsule (Flomax) 0.4 mg PO DAILY #90 caps 04/21/24 08/18/24 Rx acetaminophen 500 mg tablet 1,000 mg (2 x 500 mg) PO TID #90 08/18/24 Rx tabs aspirin 81 mg tablet,delayed 81 mg PO BID #60 tabs 08/18/24 Rx release celecoxib 200 mg capsule 200 mg PO BID #60 caps 08/18/24 Rx dexamethasone 4 mg tablet 4 mg PO DAILY #2 tabs 08/18/24 Rx oxycodone 5 mg tablet 5 mg PO Q4H PRN pain #20 tabs 08/18/24 Rx pantoprazole 40 mg tablet,delayed 40 mg PO DAILY #30 tabs 08/18/24 Rx release Exam Const General: cooperative, healthy appearing, comfortable and no acute distress Resp Effort & Inspection: normal respiratory effort Auscultation: clear to auscultation bilaterally Cardio Rate: regular rate Rhythm: regular rhythm Results Last Vital Signs Temp 36.7 C 08/18/24 06:41 Pulse 57 L 08/18/24 06:41 Resp 16 08/18/24 06:41 BP 131/69 08/18/24 06:41 Pulse Ox 96 08/18/24 06:41
[2024-08-18] MEDS: ceFAZolin 2 GM/50 ML BAG IVPB (07:32)
[2024-08-18] MEDS: TRANEXAMIC ACID/SOD. CHL. 1,000 MG/100 ML BAG 600 MG IVPB (07:35)
--- NOTE | 2024-08-18 08:35 | DI.RAD_ITS ---
Exam(s) XR HIP RT IN OR EXAM: XR HIP RT IN OR CLINICAL HISTORY: right hip oa TECHNIQUE: 2D and realtime digital imaging was performed. CONTRAST MATERIAL: Refer to procedure report. COMPARISON: No exams were available for comparison FINDINGS: Fluoroscopy was provided for Dr. Parham during the performance of a right total hip replacement. Please refer to the procedure report for complete details. Ka,r=3.17 mGy IMPRESSION: RADIATION DOSE DELIVERED: 0.0 0.0 0
--- NOTE | 2024-08-18 08:44 | W.PM.OP ---
Date of service: 08/18/24 Time of Service: 07:40 Operative Note Operative Note DATE OF PROCEDURE: 08/18/24 PRE-OP DIAGNOSIS: Right Hip Osteoarthritis POST-OP DIAGNOSIS: same PROCEDURE: Right Anterior Total Hip Arthroplasty with Intraoperative Navigation SURGEON: Bar Parham SHUTTLE BUS DRIVER: Lee Campuzano ANESTHESIA TYPE: Spinal Refer to Anesthesia Record ESTIMATED BLOOD LOSS: 100 PATHOLOGY: none sent TOURNIQUET TIME: 0 COMPLICATIONS: None Patient was transported to: PACU Patient's condition: stable Implants: 1. Depuy [place] Acetabular Component, 56mm 2. Depuy Acetabular Liner, [id number] 3. Depuy Actis High Offset Collared Femoral Stem, Size 7 4. Depuy Altrx Ceramic Femoral Head, Size 36+1.5mm Indications: I have seen Wilfrid in clinic for symptoms of hip arthritis, confirmed with radiographic findings. He has exhausted nonoperative methods and was having significant limitations in daily function and desired better function and less pain. I discussed the technical details of a hip replacement. I explained the risks of the procedure to include, but not limited to, bleeding, infection, pain, stiffness, fracture, damage to nerves and vessels, damage to muscles and tendons, loosening, instability, leg length inequality, need for repeat procedure, blood clot and cardiopulmonary demise. Despite these risks, Wilfrid elected to proceed. Findings: There was significant signs of arthritis throughout the hip with a dense floor osteophyte. Procedure Description: Wilfrid was greeted in the preoperative holding area where the correct side was identified and marked. The consent was reviewed with the patient and signed. The history and physical was updated. All questions were answered. He was taken back to the operating room. A spinal anesthestic was then administered. The feet were wrapped with cast padding and Coban and then placed into the boot liners and then into the boots. Care was taken to protect the skin and make sure the heels were fully down and the boots were stable. The patient was then positioned onto the HANA table. Both legs were held in a neutral position. SCDs were applied. The patient was then slid down onto a peroneal post. Prophylactic antibiotics in the form of Cefazolin were administered. 1g of Tranxemic Acid was given intravenously within 30 minutes of incision. The right leg was then prepped with Chloraprep and draped in a standard fashion. A second prep with Chloraprep was performed prior to placement of a shower-curtain type drape with Iodine impregnated skin protection. A timeout to confirm correct identity, side and site, procedure, allergies, anesthesia, and medical concerns was performed. An obliquely oriented incision was made starting lateral to the ASIS and running distal over the Tensor Fascia Cathy (TFL) muscle belly toward the fibular head, approximately 10cm. The skin and soft tissue was dissected sharply, through Nasir?s fascia, and to the fascia of the TFL. With the fascia and superior border of the IT band identified, the fascia was incised with a new knife just above any perforators from the IT band. The TFL muscle belly was bluntly dissected away from the fascia and moved laterally. The fat between TFL and rectus was identified to ensure the dissection was not within the TFL. Blunt dissection created space between abductors and the capsule and retractor was placed over the lateral femoral neck. The fibers of the rectus femoris tendon were identified and these were freed from the anterior capsule. A second cobra retractor was placed around the medial femoral neck. The TFL was further retracted laterally to show the deep fascia. Careful dissection through this layer identified three main crossing vessels of the lateral femoral circumflex. These were cauterized in multiple locations and then cut without any noticeable bleeding. The TFL was further released bluntly from the deep fascia to expose anterior hip capsule and fat The soft tissue orthopaedic retractor was then placed beneath the TFL and against sartorius and medial soft tissues to protect and retract the soft tissues. A T-capsulotomy was then performed starting at the superior lateral acetabulum and moving distally to the intertrochanteric ridge. These capsular flaps were tagged with a No. 1 Ethibond and elevated from within. The capsular flaps were released to the shoulder of the lateral neck and to the lesser trochanter to give excellent visualization of the proximal femur. A neck osteotomy was performed using an oscillating saw based on preoperative templates. This cut started in the shoulder and of the lateral neck and exited medially. The saw was at all times directed medially to avoid injury to the greater trochanter. Gross traction was applied to the leg and the osteotomy opened. The femoral head was removed with a corkscrew, making sure to protect the TFL on its exit. Traction was released after head removal. This was measured on the back table to determine the starting reamer size. Portions of the rectus obscuring visualization were minimally elevated off the superior acetabulum. An anterior retractor was placed over the anterior wall between capsule and labrum and attached to the Gripper retraction system. The femur was rotated to 90 degrees and medial capsule was fully released until the lesser trochanter was palpable and visible; the femur was returned to 30 degrees. A posterior retractor was placed similarly between capsule and labrum. This provided excellent visualization. The contents of the cotyloid fossa were removed with electrocautery and the labrum was removed with a knife. There was a notable floor osteophyte. There was significant chondromalacia of the superior acetabulum. Acetabular reaming began with a 50mm reamer. This first reaming was directed anterior to posterior and medial to get down to the true floor. This was inspected and reamed until the true floor was reached. The anterior retractor was then released and entry and exit was provided by traction on the capsular flaps. I then reamed sequentially up to a 56mm reamer where good fit was obtained. The larger reamers were oriented based on anatomical reference of the anterior and lateral cortez to ensure proper abduction and anteversion. Positioning and size was confirmed with the fluoroscopy. A 56mm Depuy [place] acetabular component was selected. The deep tissues were irrigated. The acetabular component was then impacted in a position of about 40-45 degrees of abduction and 15-20 degrees of anteversion, using the patient?s anatomy as the ultimate landmark. Fluoroscopy was used to confirm this. There was excellent crew car driver of the acetabular component and the inserting handle was removed. The acetabular liner, Depuy [id number] polyethylene liner, was inserted and lined up with the tines of the acetabular component. There was no soft tissue interposition. The liner was then impacted into position and confirmed to be well-seated. A portion of the shaggy-articular cocktail was then injected around the acetabulum into the capsule and periosteum. This cocktail consisted of 123mg of Ropivacaine, 0.25mg of Epinephrine, 0.04mg of Clonidine, and 15mg of Ketorolac, diluted to 50cc. The leg was rotated to 120 degrees. Any remaining medial capsule was released until the lesser trochanter was easily palpable. A retractor was placed medially. The lateral capsule was further released into the shoulder to allow access to the greater trochanter. A Hernandez retractor was placed over the greater trochanter which allowed the trochanter to flip in front of the capsule for excellent exposure. The leg was brought down into maximal extension and 20 degrees of adduction while ensuring there was no impingement on the acetabulum. Any remnant capsule within the trochanter was released. Piriformis and obturator externis were identified and protected. There was excellent access to the proximal femur. The lateral neck remnant was removed with a rongeur. A blunt canal probe was used to identify the canal and trajectory for later broaching. A box osteotome initiated the broach course. A small curved rasp and a curved curette were used to work laterally. Broaching then began with a starter Actis broach. This was inserted manually around the trochanter and into the canal before mallet blows. The broach was seated to a few millimeters below the cut level based on the neck cut and the preoperative template. Sequential broaching was continued with the Loyalzoose pneumatic broaching device until a tight fit was obtained with good rotational control of the femur. A trial standard neck was inserted along with a +5 trial head. The leg was brought out of extension and adduction and then reduced with traction and internal rotation. The leg was stable anteriorly in a position of 30 degrees of extension and 90 degrees of external rotation. Fluoroscopy was used to ensure there was no fracture and the stem was seated well. Leg lengths were checked with an AP pelvis and pelvic reference points. [employer] navigation system was used to confirm appropriate positioning and leg length and offset. This undercorrected the offset of the hip and overcorrected the leg lengths. However, by going to a high offset neck with a +1.5 mm head I would improve the overall offset and the appropriate correction of leg length. Once content with the desired offset and leg lengths, the leg was brought back into extension, external rotation and adduction. The periosteum and surrounding tissue was injected with remaining portion of the shaggy-articular cocktail. The proximal femur was irrigated as well as the deep tissues. The Depuy Actis High Offset collared stem, size 7, was then manually inserted into the proximal femur making sure to control rotation. It was then malleted into position with light blows, giving breaks to allow bone expansion and decrease risk of fracture. The selected Depuy Altrx Ceramic Head, size 36+1.5mm, was then placed onto the clean and dry trunnion and secured with impaction onto the tapered fit. The leg was brought back out of extension and adduction and reduced with traction and internal rotation. Stability was confirmed with no shuck at 90 degrees of external rotation and 30 degrees of extension. No impingement through range of motion arc. Final x-ray images were obtained with fluoroscopy to confirm adequate positioning and no intraoperative fracture. The deep tissues were thoroughly irrigated with Surgiphor, betadine solution. This was allowed to sit in the wound for 3 minutes before being thoroughly irrigated out with normal saline. The capsule was then reapproximated with the previously placed Ethibond sutures. The TFL fascia was finally closed with a No. 2 Stratafix, barbed suture. Deep tissues were then reapproximated with 0 Vicryl and a running 2-0 Vicryl. The skin was closed with a running 4-0 Monocryl in a subcuticular fashion. This was reinforced with skin glue. A Mepilex silver dressing was applied. At the end of the case, all counts were correct. Wilfrid was transferred to the hospital bed without difficulty and suffering no apparent complication. Wilfrid has a good prognosis. Physical therapy will start today and without restrictions, weight-bearing as tolerated. Aspirin 81mg BID will be used for DVT prophylaxis.
--- NOTE | 2024-08-18 09:22 | W.ANESPOSTOP ---
Postoperative Evaluation Date, Time and Location Date Performed: 08/18/24 Time Performed: 09:22 Patient Location: PACU Vital Signs Most Recent Imported Vital Signs: Most Recent Vital Signs Temp Pulse Resp BP Pulse Ox 36.3 C L 68 17 122/66 96 08/18/24 09:20 08/18/24 09:05 08/18/24 09:06 08/18/24 09:05 08/18/24 09:06 Pain Score Most Recent Pain Score: Most Recent Pain Score Pain Level 0 08/18/24 09:20 Assessment Mental Status: Awake (Alert & Oriented to Patient Baseline) Airway and Respiratory Function: Patent airway with normal (patient baseline) respiratory exam Cardiovascular Function: Hemodynamically Stable Hydration Status: Adequately Hydrated Nausea & Vomiting: No Nausea or Vomiting Pain: Pt. Denies Any Pain (spinal still waning. able to lift heels. ) Peripheral Nerve Block: Patient did not receive a nerve block
[2024-08-18] MEDS: oxyCODONE 5 MG TAB PO (09:52)
--- NOTE | 2024-08-18 10:40 | IN_ITS ---
PT Notes Visit Reasons: R THR Physical Therapy Day Surgery Initial Evaluation Date: 08/18/2024 Referring Doctor: LISA Anglin PT Orders: PT CONSULT: S/p Ortho surgery Precautions: WBAT on the right LE with AD. Patient Profile/Admitting Diagnosis: Wilfrid is a 63-year-old male with degenerative joint disease of the right hip and is status post right total hip arthroplasty on postoperative day 0. PMHX: All Active Problems Degenerative joint disease of right hip (Chronic) Depo-medrol injection: 04/09/24 Bilateral tinnitus (Acute) Right hip pain (Acute) severe degenerative changes BPH w urinary obs/LUTS (Acute) Elevated PSA (Acute) 09/04/23 4.6 Screening for prostate cancer (Acute) Other mucopurulent conjunctivitis, right eye (Acute) [facility] 04/01/23 -hb Sciatic leg pain (Acute) right side Cubital tunnel syndrome on left (Acute) Carpal tunnel syndrome of left wrist (Acute) Cervical radiculopathy at C6 (Acute) Screening for colorectal cancer (Acute) Medical History Hyperlipidemia Exercise-induced asthma (02/25/14) Essential hypertension (08/23/13) Exercise-induced asthma Depression with anxiety remoteCoarctation of aorta s/p surgery at age 14 Hyperlipidemia Hypertension Surgical History History of colonoscopy History of arthroscopy of knee Status post aortic coarctation repair age 14S/P left knee arthroscopy Social History/Home Situation: Lives with in a trailer with 2 steps to enter without rails. Independent with all aspects of ADLs prior to surgery using a single-point cane with report of increasing pain in the right hip due to arthritic process. Equipment Owned/DME: [facility] Subjective: Denied headache, chest pain, and lightheadedness throughout session. Pain report went down to 4/10 from 7/10 at the start with mobility performance. Objective: General Observation: Mepilex Ag over surgical incisions. TEDS to B legs. Cold pack on R hip. Mental Status: A and O x 4 Pain: 7/10 at rest, 4/10 with mobility performance ROM: Right Lower Extremity: Hip flexion allows up to 100 degrees actively. Hip abduction WFL. Knee flexion WFL. Ankle dorsiflexion WFL. Ankle plantarflexion WFL. Left Lower Extremity: Hip flexion WFL. Hip abduction WFL. Knee flexion WFL. Ankle dorsiflexion WFL. Ankle plantarflexion WFL. Strength: Right Lower Extremity: Hip flexors 3-/5. Hip abductors 4-/5. Knee flexors 5/5. Knee extensors 4-/5. Ankle dorsiflexors 5/5. Ankle plantarflexors 5/5. Left Lower Extremity:Hip flexors 5/5. Hip abductors 5/5. Knee flexors 5/5. Knee extensors 5/5. Ankle dorsiflexors 5/5. Ankle plantarflexors 5/5. Sensation: Inatct as to pain and light pressure in B LE Bed Mobility/Transfers: Minimal cueing provided for use of B hands as needed for support, movement sequence, AD management, and posture to reduce fall risk and minimize pain report Supine to sit standby assist with FWW Sit to stand contact-guard assist with FWW Stand to sit standby assist with FWW Bed to chair standby assist with FWW Gait: Facilitated safe and correct performance of level surface ambulation covering a distance of 150 feet using reciprocal step through heel-toe gait pattern requiring only standby assist using front wheeled walker with minimal verbal cueing provided for AD management, limb advancement, and posture to minimize pain report and reduce fall risk. Stairs: Guided patient with safe and correct negotiation of 2 x 6 inch steps and 3 x 4 inch steps while holding onto a single-point cane on 1 side and holding onto a rail with the other hand requiring only standby assist and minimal verbal cueing for movement sequence, hand placement, and AD management to minimize pain reported reduce fall risk. Balance: Static Sitting: Normal Dynamic Sitting: Normal Static Standing: Fair Dynamic Standing: Fair Special Tests: Mobility Limitations Standardized Measure [facility] AM-PAC 6 clicks Basic Mobility Inpatient Short Form: Raw Score: 23 CMS Score: 11% deficit Informed Consent/Education: Patient instructed in purpose of PT consult. Packet containing MISTY exercise protocol has been given to patient. Education and training on initial set of exercises that can be done at home have been completed with patient. Trained patient with correct performance of exercises below to maximize motor control, joint flexibility, soft tissue extensibility of the R hip musculature to facilitate return to independent functional mobility performance. Access Code: [email or web address] URL: [email or web address] Date: 08/18/2024 Prepared by: Janelle Pascual Exercises - Gluteal Sets - 1 x daily - 7 x weekly - 1 sets - 10 reps - 5 hold - Supine Heel Slide - 1 x daily - 7 x weekly - 1 sets - 10 reps - 5 hold - Supine Ankle Pumps - 1 x daily - 7 x weekly - 1 sets - 10 reps - 5 hold - Seated March - 1 x daily - 7 x weekly - 1 sets - 10 reps - 5 hold - Seated Long Arc Quad - 1 x daily - 7 x weekly - 1 sets - 10 reps - 5 hold ASSESSMENT: Patient requires the use of a front wheeled walker for all mobility ADL performance to maximize independence and reduce fall risk. Initially complained of pain but pain subsided with mobility performance. Patient presents with clinical signs and symptoms consistent with current/admitting diagnoses that have resulted to mobility limitations, gait instability, generalized weakness, and impairment of motor control as demonstrated by the following impairment level findings: 1. Decreased strength to R hip major muscle groups 2. Impaired standing balance 3. Limitation of joint range of motion in R hip Impairments are contributing to the following functional limitations: 1. Inability to safely ambulate without assistive device 2. Increase completion time for mobility ADL performance 3. Increased fall risk Patient is assessed as a 69228 moderate complexity based on the following: History: 63-year-old female with impairment level findings, functional limitations, and past medical history as indicated above Examination: Demonstrable impairment in strength, balance, and mobility level with underlying impairments and functional limitations as documented above Presentation: Evolving Decision Makin moderate complexity , Goals: N/A. PT evaluation and 1-2 treatment sessions only for functional mobility training using recommended AD and for HEP instruction. Plan of Care/Treatment Plan: N/A. PT evaluation and 1-2 treatment session only for functional mobility training using recommended AD and for HEP instruction. DISCHARGE RECOMMENDATIONS: Home when medically cleared by orthopedic surgeon. Recommend outpatient PT services in order to optimize functional mobility outcomes and facilitate return to independent community ambulation without an assistive device TREATMENT CODE/TIME: 53928 x 20 minutes for 1 unit, 83927 x 13 minutes for 1 unit (10:40?11:13). Thank you for the opportunity to participate in the care of this patient. Please sign an return this page within 30 days if you agree with the above POC. Thank you! Physician Signature Date [facility] Janelle Pascual PT, DPT, CLT [facility] [place], [place]
== END 2024-08-18 11:38 | disposition home or self-care (01) ==
PROVIDERS: PCP Nurse Practitioner Family; Visit Provider Student in an Organized Health Care Education/Training Program
PROC: (CPT 27130; principal; 2024-08-18 07:30)
DX: M16.11 Unilateral primary osteoarthritis, right hip (principal); E78.5 Hyperlipidemia, unspecified; I10 Essential (primary) hypertension
CPT/HCPCS: 27130; 20985; 97162; 97530; 73501; C1776; J0690; J1100; J2250; J2401; J2405; J2704

== ENCOUNTER 2024-09-02 14:56 | Outpatient (CLI) | payer BC, SELFPAY ==
--- NOTE | 2024-09-02 14:15 | DI.RAD_ITS ---
Exam(s) XR HIP RT COMPLETE AP PELVIS EXAM: XR HIP RT COMPLETE AP PELVIS CLINICAL HISTORY: 1ST POST OP R MISTY. TECHNIQUE: 2D digital imaging was performed. COMPARISON: CR XR HIP RT COMPLETE AP PELVIS from 02/16/2024 XA XR HIP RT IN OR from 08/18/2024 FINDINGS: Two views There is stable position alignment of the components of the recently placed right hip prosthesis. No fracture or loosening evident. There are 3 similar-appearing calcific densities noted in the lower pelvis. I suspect that these are urinary bladder calculi. IMPRESSION: Stable satisfactory appearance of the recently placed right hip prosthesis. Multiple calcifications in the pelvis which are possibly urinary tract calculi within the urinary jan dder lumen. DATA REPOSITORY: RADIATION DOSE DELIVERED:
== END 2024-09-02 14:57 | disposition home or self-care (01) ==
LOC: DIORS 14:56
PROVIDERS: PCP Nurse Practitioner Family; Visit Provider Student in an Organized Health Care Education/Training Program
DX: Z96.641 Presence of right artificial hip joint (principal); Z47.1 Aftercare following joint replacement surgery
CPT/HCPCS: 73502

== ENCOUNTER 2024-10-13 02:55 | Outpatient (CLI) | payer BC, SELFPAY ==
[2024-10-13 18:09] LABS: PSA, Screening 4.7 ng/mL (<=4.5)
== END 2024-10-13 02:56 | disposition home or self-care (01) ==
LOC: LBO 02:55
PROVIDERS: PCP Nurse Practitioner Family; Visit Provider Nurse Practitioner Gerontology
DX: R39.9 Unspecified symptoms and signs involving the genitourinary system (principal); N40.1 Benign prostatic hyperplasia with lower urinary tract symptoms; N13.8 Other obstructive and reflux uropathy; R97.20 Elevated prostate specific antigen [PSA]; Z80.42 Family history of malignant neoplasm of prostate
CPT/HCPCS: 36415; 84153

== ENCOUNTER 2025-01-11 02:57 | Outpatient (CLI) | payer BC, SELFPAY ==
[2025-01-11 19:41] LABS: PSA, Diagnostic 4.2 ng/mL (<=4.5)
== END 2025-01-11 02:58 | disposition home or self-care (01) ==
PROVIDERS: PCP Nurse Practitioner Family; Visit Provider Nurse Practitioner Gerontology
DX: N40.1 Benign prostatic hyperplasia with lower urinary tract symptoms (principal); N13.8 Other obstructive and reflux uropathy; R97.20 Elevated prostate specific antigen [PSA]
CPT/HCPCS: 36415; 84153

== ENCOUNTER 2025-04-25 02:07 | Outpatient (CLI) | payer BC, SELFPAY ==
--- NOTE | 2025-04-25 08:00 | DI.MRI_ITS ---
Exam(s) MR CERVICAL SPINE WO EXAM: MR CERVICAL SPINE WO CLINICAL HISTORY: needs updated mri for neurosurgery, cervical radiculopathy at C6, M54.12 TECHNIQUE: Multiplanar multisequence MRI of the cervical spine was performed without intravenous contrast. COMPARISON: MR MR CERVICAL SPINE WO from 11/29/2019 FINDINGS: BONES: Vertebral body heights are maintained. There is a mild upper thoracic levoscoliosis.. Bone marrow signal intensity is within normal limits. Facet degenerative changes noted throughout. CERVICAL CORD: Craniovertebral junction is unremarkable. The cervical cord is normal size and signal intensity. SOFT TISSUES: Unremarkable. C2-3: No disc herniation or bulge is identified. Uncovertebral osteophytes severe left neural foraminal narrowing. No significant central canal stenosis. C3-4: No disc herniation or bulge is identified. Uncovertebral osteophytes. No severe bilateral neural foraminal narrowing. No significant central canal stenosis. C4-5: No disc herniation or bulge is identified. Uncovertebral osteophytes on the left. severe bilateralneural foraminal narrowing. No significant central canal stenosis. C5-6: Severe loss of disc height. Prominent circumferential endplate osteophytes. Severe bilateral neural foraminal narrowing. Mild central canal stenosis. C6-7: Severe loss of disc height. Small endplate osteophytes. Severe bilateral neural foraminal narrowing. No significant central canal stenosis. C7-T1: Severe loss of disc height. Moderate endplate osteophytes.. Severe bilateral neural foraminal narrowing. No significant central canal stenosis. IMPRESSION: Degenerative disc changes and facet degenerative changes cause severe bilateral neural foraminal narrowing at multiple levels. The findings appear more prominent on the left. Mild central canal stenosis is present at C5-6. DATA REPOSITORY:
== END 2025-04-25 02:27 ==
LOC: DI 02:07
PROVIDERS: PCP Nurse Practitioner Family; Visit Provider Nurse Practitioner Family
DX: M54.12 Radiculopathy, cervical region (principal)
CPT/HCPCS: 72141

== ENCOUNTER 2025-05-11 10:07 | Outpatient (CLI) | payer BC, SELFPAY ==
--- NOTE | 2025-05-11 09:58 | DI.RAD_ITS ---
Exam(s) XR SHOULDER LT COMPLETE 2+V EXAM: XR SHOULDER LT COMPLETE 2+V CLINICAL HISTORY: CHRONIC LT SHOULDER PAIN, M25.512,G89.29. TECHNIQUE: 2D digital imaging was performed. Three views. COMPARISON: No exams were available for comparison FINDINGS: BONES: No acute fracture is present. No bony destructive lesion is seen. JOINTS: No dislocation present. No significant spurring at the AC joint. Minimal spurring at the glenoid. Glenohumeral joint space is maintained. SOFT TISSUE: Normal. IMPRESSION: Minimal degenerative changes. DATA REPOSITORY: RADIATION DOSE DELIVERED:
== END 2025-05-11 10:27 ==
LOC: DI 10:09
PROVIDERS: PCP Nurse Practitioner Family; Visit Provider Neurological Surgery
DX: M25.512 Pain in left shoulder (principal); G89.29 Other chronic pain
CPT/HCPCS: 73030

== ENCOUNTER 2025-05-24 01:33 | Outpatient (CLI) | payer BC, SELFPAY ==
--- NOTE | 2025-05-24 | DI.MRI_ITS ---
Exam(s) MR UPPER JOINT LT WO EXAM: MR UPPER JOINT LT WO CLINICAL HISTORY: CHRONIC LT SHOULDER PAIN, M25.512, G89.29, LT ARM PAIN WITH SHOULDER. TECHNIQUE: Multiplanar multisequence MRI was performed. COMPARISON: CR XR SHOULDER LT COMPLETE 2+V from 05/11/2025 FINDINGS: BONES: There is no fracture or contusion pattern. JOINTS: Mild degenerative changes are seen at the acromioclavicular joint. The glenohumeral joint is normal. There is no glenohumeral joint effusion. TENDONS: Supraspinatus: Unremarkable. Infraspinatus: Unremarkable. Subscapularis: Unremarkable. Teres Minor: Unremarkable. Biceps and Davison: Unremarkable. MUSCLES: Unremarkable. GLENOID LABRUM: The posterior superior labrum is irregular and shows intermediate signal. This is suspicious for degeneration. SOFT TISSUES: Unremarkable. LIGAMENTS: Unremarkable. OTHER: There is fluid in the subacromial subdeltoid bursa. IMPRESSION: 1. There is no evidence of a rotator cuff tear. 2. Probable degeneration of the posterior superior labrum. 3. Fluid in the subacromial subdeltoid bursa which may represent a bursitis. 4. Mild degenerative changes seen at the acromioclavicular joint. DATA REPOSITORY:
== END 2025-05-24 01:53 ==
LOC: DI 01:33
PROVIDERS: PCP Nurse Practitioner Family; Visit Provider Neurological Surgery
DX: M19.012 Primary osteoarthritis, left shoulder (principal)
CPT/HCPCS: 73221

== ENCOUNTER 2025-06-30 12:38 | Outpatient (REF) | payer BC, SELFPAY | END 2025-06-30 12:39 | disposition home or self-care (01) | LOC: LBN 12:38 | PROVIDERS: PCP Nurse Practitioner Family; Visit Provider Nurse Practitioner Family | DX: N30.01 Acute cystitis with hematuria (principal) | CPT/HCPCS: 87086 ==

== ENCOUNTER 2025-07-06 14:54 | Outpatient (CLI) | payer BC, SELFPAY ==
--- NOTE | 2025-07-06 | DI.MRI_ITS ---
Exam(s) MR ABDOMEN WO/W EXAM: MR ABDOMEN WO/W CLINICAL HISTORY: CYST KIDNEY N28.1 RENAL CYST RIGHT TECHNIQUE: Multiplanar multisequence MRI of the Abdomen was performed. CONTRAST MATERIAL: IV Contrast: 17 mL of Dotarem contrast administered. COMPARISON: CT CT ABDOMEN PELVIS WO from 06/10/2025 US US RENAL from 06/13/2025 FINDINGS: Lung bases: Unremarkable. Liver: No evidence of a hepatic mass is seen. No intrahepatic biliary ductal dilatation is seen. Pancreas: Unremarkable. No evidence of a pancreatic mass or peripancreatic fluid collection is seen. Gallbladder and Bile Ducts: There is no evidence of cholelithiasis or biliary ductal dilatation. Adrenals: Unremarkable. Kidneys: There are multiple bilateral simple renal cysts. They show hyperintense T2 signal and hypointense T1 weighted signal. There are many more cysts seen in the right kidney. The largest cyst measures 1.5 x 1.4 cm on the right and 0.7 x 0.6 cm on the left. There is no evidence of hydronephrosis. Spleen: Unremarkable. Bowel: There is no evidence of bowel obstruction or bowel wall thickening. Aorta: Unremarkable. Soft Tissues: Unremarkable. Bone: Degenerative changes are seen in the spine resulting in moderately severe central spinal canal stenosis at L3-L4. There is a mild right convex lumbar scoliosis. Lymph Nodes: Unremarkable. IMPRESSION: 1. Bilateral simple renal cysts. No follow-up is recommended. 2. No suspicious renal mass. DATA REPOSITORY:
[2025-07-06] MEDS: Gadoterate meglumine 20 ML VIAL IVP (08:10)
[2025-07-06] MEDS: Normal Saline - Diluent 50 ML VIAL IJ (08:10)
== END 2025-07-06 15:14 ==
LOC: DI 14:54
PROVIDERS: PCP Nurse Practitioner Family; Visit Provider Physician Assistant Medical
DX: N28.1 Cyst of kidney, acquired (principal)
CPT/HCPCS: 74183

== ENCOUNTER 2025-07-12 08:35 | Outpatient (CLI) | payer BC, SELFPAY ==
[2025-07-12 19:56] LABS: PSA, Diagnostic 4.7 ng/mL (<=4.5)
== END 2025-07-12 08:36 | disposition home or self-care (01) ==
LOC: LBO 08:35
PROVIDERS: PCP Nurse Practitioner Family; Visit Provider Nurse Practitioner Gerontology
DX: R97.20 Elevated prostate specific antigen [PSA] (principal); N40.1 Benign prostatic hyperplasia with lower urinary tract symptoms; N13.8 Other obstructive and reflux uropathy
CPT/HCPCS: 36415; 84153

== ENCOUNTER 2025-07-18 06:21 | Day surgery (SDC) | payer BC, SELFPAY ==
[2025-07-18] VITALS (27 sets, daily range): BP systolic 108–143; BP diastolic 61–88; PULSE 45–65; RESP 11–17; TEMP 35.9–36.5; O2SAT 95–98; BMI 27.4
[2025-07-18] MEDS: Lactated Ringers 1,000 ML 80 ML IV (07:00)
--- NOTE | 2025-07-18 07:01 | W.PM.HP.N ---
Date of service: 07/18/25 Time of Service: 07:01 Assessment and Plan Assessment and plan (1) Gross hematuria: Status: Acute (2) Bladder stones: Status: Acute Assessment and plan: We will plan to do a cystoscopy and bilateral retrogrades to complete his hematuria workup. We will be prepared to treat his bladder stones with our holmium laser if need be. History of Present Illness History of Present Illness Chief Complaint: Gross hematuria Narrative: This is a 64-year-old gentleman who developed gross hematuria about a month ago. He was evaluated with a noncontrast CT scan which demonstrated stones within the bladder. There was a question of a mass in the kidney so he had subsequent renal ultrasound and abdominal MRI. No concerning mass was identified. He presents now for cystoscopy with bilateral retrograde pyelogram to complete his hematuria workup. He is also interested in having his bladder stones treated Review of Systems Narrative: No fevers or chills Tinnitus. No vision change or dysphasia No diabetes or thyroid dysfunction No shortness of breath, cough or hemoptysis No chest pain or palpitations No nausea, vomiting, hepatitis, ulcers, jaundice, diarrhea or constipation No seizures, strokes or peripheral neuropathy No bleeding disorders or anemia No gout PFSH All Active Problems (Updated 07/18/25 @ 07:04 by Kingsley Anthony MD) Bladder stones (Acute) Gross hematuria (Acute) Foreign body (FB) in soft tissue (Acute) History of total right hip replacement (Acute 08/18/24) Bilateral tinnitus (Acute) BPH w urinary obs/LUTS (Acute) Cubital tunnel syndrome on left (Acute) Carpal tunnel syndrome of left wrist (Acute) Cervical radiculopathy at C6 (Acute) Medical History (Updated 07/18/25 @ 07:04 by Kingsley Anthony MD) Right hip pain severe degenerative changes Elevated PSA 09/04/23 4.6 Screening for prostate cancer Other mucopurulent conjunctivitis, right eye NEC [facility] 04/01/23 -hb Sciatic leg pain right side Screening for colorectal cancer Hyperlipidemia Exercise-induced asthma (02/25/14) Essential hypertension (08/23/13) Exercise-induced asthma Depression with anxiety remote Coarctation of aorta s/p surgery at age 14 Hyperlipidemia Hypertension Surgical History History of colonoscopy History of arthroscopy of knee Status post aortic coarctation repair age 14 S/P left knee arthroscopy Family History (Updated 02/18/25 @ 13:18 by Lelia Jaramillo) Mother Personal history of malignant neoplasm BREAST Heart disease Hyperlipidemia Father Heart disease Myocardial infarction Sister Cancer Skin Brother Prostate cancer Brother Prostate cancer Maternal Grandfather Diabetes Heart disease Maternal Grandmother Heart disease Son , age 36 Heart disease Social History (Updated 02/18/25 @ 13:16 by Lelia Jaramillo) Smoking/Tobacco Use Status: Never Second Hand Exposure: Yes Smoking risk assessment performed?: Yes Alcohol Intake: current Alcohol Intake frequency: a few times a month Alcohol type: wine Drug use: Never Substance use type: does not use Counseling given: No Adopted: No Caregiver/Support person: No Household members: spouse Housing: other Details: [facility] Number of Children: 1 number of grandchildren: 1 Communication Needs: Hard of Hearing Do you need help understanding health information?: Never current occupation: [employer] Pets and animals: Yes Pets and animals: dog(s) Sexually active: No Do you think of yourself as: straight/heterosexual Current gender identity: male What is your relationship status?: How often do you talk on the phone with friends or family?: once per week How often do you get together with friends or relatives?: once per week How often do you attend hinduism or episcopalian services?: decline to answer Do you belong to any clubs or organized social groups?: no Panel score (0-1 are the most socially isolated patients): 1 What type of physical activity do you participate in: walking Duration: 30-45 minutes/day Frequency: 5-6 times per week Marisela/Denominational: Non advent Special marisela needs: No Agree to transfusion: Yes Seatbelt use: sometimes Helmet use: Yes Helmet use: always Drive intox or ride w/intox tram driver: No Working smoke detector in home: Yes Carbon monox detector in home: Yes Firearms in home: Yes Firearms unloaded and locked: Yes Victim of physical abuse: No Victim of emotional abuse: No Victim of sexual abuse: No Would you like helpful sources: No Additional Social history: UTAP Meds Allergies and Home Medications Allergies Allergy/AdvReac Type Severity Reaction Status Date / Time diphenhydramine AdvReac Mild SHAKEY Verified 07/14/25 13:52 Home Medications ?Medication ?Instructions ?Recorded ?Confirmed ?Type albuterol sulfate 90 mcg/actuation 2 puff inhalation Q6H PRN ##2 12/08/19 07/18/25 Rx aerosol inhaler (Ventolin HFA) tamsulosin 0.4 mg capsule (Flomax) 0.8 mg (2 x 0.4 mg) PO DAILY #180 10/20/24 07/18/25 Rx caps amoxicillin 500 mg tablet 2,000 mg (4 x 500 mg) PO ONCE #4 02/14/25 07/18/25 Rx tabs Exam Const General: cooperative Neck Neck: supple Resp Effort & Inspection: normal respiratory effort Auscultation: clear to auscultation bilaterally Cardio Rate: regular rate Rhythm: regular rhythm GI Palpation: soft and no masses Neuro General: patient alert, patient awake and patient oriented x3 Results Last Vital Signs Temp 36.5 C 07/18/25 06:25 Pulse 65 07/18/25 06:25 Resp 16 07/18/25 06:25 BP 128/61 07/18/25 06:25 Pulse Ox 97 07/18/25 06:25 Time Spent Time spent with Patient: <40 minutes Time was spent: other
--- NOTE | 2025-07-18 07:13 | W.ANESPRE ---
General Info Date of Service Date Performed: 07/18/25 Height: 5 ft 10 in Weight: 86.7 kg Body Mass Index (BMI): 27.4 Surgical Procedure: Operation Date: 07/18/25 07:40 Proposed Procedure Side Surgeon p Cystoscopy/Retrograde/Transurethral Resection Bladder Tumor Bilateral Kingsley Anthony MD Meds Allergies and Home Medications Allergies Allergy/AdvReac Type Severity Reaction Status Date / Time diphenhydramine AdvReac Mild SHAKEY Verified 07/14/25 13:52 Home Medication ?Medication ?Instructions ?Recorded albuterol sulfate 90 mcg/actuation 2 puff inhalation Q6H PRN ##2 12/08/19 aerosol inhaler (Ventolin HFA) tamsulosin 0.4 mg capsule (Flomax) 0.8 mg (2 x 0.4 mg) PO DAILY #180 10/20/24 caps amoxicillin 500 mg tablet 2,000 mg (4 x 500 mg) PO ONCE #4 02/14/25 tabs Current Visit Medications: Current Medications Generic Name Dose Route Start Last Admin Trade Name Freq PRN Reason Stop Dose Admin Ringer's Solution 1,000 mls @ 80 mls/hr 07/18/25 06:00 07/18/25 07:00 IV 07/18/25 23:59 80 mls/hr INFUSION PRICILA Administration Cefazolin Sodium/Dextrose 2 gm in 50 mls @ 100 mls/hr 07/18/25 06:00 Ancef Duplex IVPB 07/18/25 23:59 PREOP PRICILA IV Miscellaneous Supplies 1 each 07/18/25 06:00 Iv Access IV 07/18/25 23:59 DIRECTED PRICILA Sodium Chloride 0 ml 07/18/25 06:00 Normal Saline Flush 10 Ml Syr IV 07/18/25 23:59 PRN PRN Sodium Chloride 0 ml 07/18/25 06:00 Normal Saline 10 Ml Vial IJ 07/18/25 23:59 DIRECTED PRN Sterile Water 0 ml 07/18/25 06:00 Water,Injection,Sterile 10 Ml Vial IJ 07/18/25 23:59 DIRECTED PRN PFSH Active Problems Active Problems: Problem Status Onset Code Bladder stones Acute N21.0 Gross hematuria Acute R31.0 Foreign body (FB) in soft tissue Acute M79.5 History of total right hip replacement Acute 08/18/24 Z96.641 Bilateral tinnitus Acute H93.13 BPH w urinary obs/LUTS Acute N40.1, N13.8 Cubital tunnel syndrome on left Acute G56.22 Carpal tunnel syndrome of left wrist Acute G56.02 Cervical radiculopathy at C6 Acute M54.12 Medical History Medical History (Updated 07/18/25 @ 07:04 by Kingsley Anthony MD) Right hip pain severe degenerative changes Elevated PSA 09/04/23 4.6 Screening for prostate cancer Other mucopurulent conjunctivitis, right eye N[facility] 04/01/23 -hb Sciatic leg pain right side Screening for colorectal cancer Hyperlipidemia Exercise-induced asthma (02/25/14) Essential hypertension (08/23/13) Exercise-induced asthma Depression with anxiety remote Coarctation of aorta s/p surgery at age 14 Hyperlipidemia Hypertension Surgical History Surgical History History of colonoscopy History of arthroscopy of knee Status post aortic coarctation repair age 14 S/P left knee arthroscopy Tobacco Smoking/Tobacco Use Status: Never Passive smoking exposure: Yes Second hand exposure: Yes Alcohol Alcohol Intake: current Alcohol intake frequency: a few times a month Alcohol type: wine Substance Use Substance use: Never Substance use type: does not use Vital Signs and Lab Results Vital Signs Most Recent Vital Signs in EMR: Most Recent Vital Signs Temp Pulse Resp BP Pulse Ox 36.5 C 65 16 128/61 97 07/18/25 06:25 07/18/25 06:25 07/18/25 06:25 07/18/25 06:25 07/18/25 06:25 Imaging and Studies Imaging and Studies Study information below may be from another EMR and interpreted by another provider. Please see original notes in EMR for more complete details. EKG Summary: 01/23/23 Conclusion Sinus rhythm...normal P axis, V-rate 50- 99 Probable left atrial enlargement...P >50mS, RSR' in V1 or V2, probably normal variant Stress Test Summary: 01/27/23 Stress ECG Conclusion 1. The resting electrocardiogram showed an incomplete right bundle branch block 2. Patient exercised on the Kush protocol completed a workload of 13.42 METS 3. Normal heart rate and blood pressure response to exercise. The patient achieved 97% of predicted heart rate for age 4. There was no electrocardiographic evidence of myocardial ischemia 5. There were no significant dysrhythmias Moore Treadmill Score is 9.3 which is Low risk. Echocardiogram Summary: 03/20/23 Conclusion Normal left ventricular wall thickness and chamber size. Ejection fraction is 60%. Wall motion is normal Normal right ventricular size and systolic function Left atrium is borderline dilated. Right atrial size is normal Aortic valve is bicuspid without stenosis or regurgitation Pulmonary Function Summary: Pulmonary Function Test PATIENT NAME: WILFRID BEEBE UNIT #: [id number] ADMITTING PROVIDER: NEHA WILLSON MD PRIMARY CARE PROVIDER: JAYY FLYNN DO DATE OF ADMIT: 02/04/14 : 1960 [facility] Pulmonary Function Test Patient: Wilfrid Umaña Date: 02/04/2014 Provider: Jayy Flynn Tech: MR# [id number] Age: 53 : 1960 Height: 71.00 in Weight: 178.00 lbs Sex Male Diagnosis: Dyspnea with exercise and cold air. Minor smoking hx Pulmonary Medications: None Post Test Comments: EFFORT: Good patient effort and cooperation. Post bronchodilator study was not done due to normal spirormetry Pre Bronchodilator Post Bronchodilator Act Pred LLN %Pred Act %Pred %Change SPIROMETRY FVC (L) 5.05 5.18 4.33 97 FEV1 (L) 4.01 4.00 3.34 100 FEV1/FVC (%) 79 77 64 103 FEF 25-75% (L/sec) 3.91 3.47 2.90 113 Peak Flow (L/sec) 10.82 9.95 8.31 109 FIVC (L) 3.86 FIF Max (L/sec) 6.60 LUNG VOLUMES SVC (L) 5.08 5.04 4.21 101 IC (L) 3.44 3.48 2.91 99 ERV (L) 1.65 1.56 1.30 105 TGV (L) 2.89 3.69 2.95 78 RV (Pleth) (L) 1.24 2.13 1.70 58 TLC (Pleth) (L) 6.32 7.17 5.74 88 RV/TLC (Pleth) (%) 20 30 24 65 DIFFUSION DLCOunc (ml/min/mmHg) 40.09 33.68 26.94 119 DLCOcor (ml/min/mmHg) 38.74 33.68 26.94 115 DL/VA (ml/min/mmHg/L) 5.43 4.70 3.76 116 VA (L) 7.13 7.17 5.99 99 AIRWAYS RESISTANCE Raw (cmH2O/L/s) 0.88 1.45 1.21 61 Gaw (L/s/cmH2O) 1.18 1.03 0.86 115 sRaw (cmH2O*s) 2.42 4.76 3.97 51 sGaw (1/cmH2O*s) 0.43 0.20 0.17 214 February 08, 2014 PRIMARY CARE PROVIDER: Jayy Flynn D.O. RESULTS: Spirometry shows no evidence of obstructive airways disease. No bronchodilator testing was carried out. Lung volumes show no evidence of restriction. Diffusion capacity normal. Airways resistance normal. IMPRESSION: Normal pulmonary function study. Clinical correlation recommended. Dictated by: NEHA WILLSON MD Dict Date: 02/08/14 Dict Time: 1035 <Electronically signed by NEHA WILLSON MD> Date: 02/09/14 Time: 5749 Anesthesia Assessment and Plan Anesthesia History Personal History: No History of Anesthesia Complications Family History: No Family History of Anesthesia Complications Exercise Tolerance Exercise Tolerance: Metabolic Equivalents>4 Pertinent Negatives Pertinent Negatives: No Symptoms of GERD, No Major Cardiovascular Symptoms or Complaints, No Major Pulmonary Symptoms or Complaints and No History of CVA/TIA Cardiac & Pulmonary Exam Cardiac Exam: Normal S1/S2 Heart Sounds Pulmonary Exam: Clear Bilateral Breath Sounds Implantable Cardiac Device Does patient have a Pacemaker or an ICD?: No Airway Exam Known Difficult Airway: No Mallampati Class: 3 Mouth Opening: Normal (> 3cm) Thyromental Distance: Less than 3 cm Neck Range of Motion: Full ROM Neck Circumference: Normal Teeth Condition: Normal Dentition ASA Classification ASA Score: ASA 2 Emergency Case?: No NPO Status NPO Status: NPO Clears >2 hours, Solids >8 hours Anesthesia Plan Resuscitation Status: Full Code Anesthesia Technique: General Anesthesia Airway Planned: Endotracheal Tube Monitors Used: Standard Monitors Preoperative Comments:: 63 yo male for cysto, TURBT Sig PMHx: HTN, coarc Ao repair at 14, asthma (albuterol), Neck pain (degen changes c-spine, narrowing at C5-6. Has seen [facility] neuro), never smoker, occ EtOh. EKG: sinus ECHO: LVEF 60%, Bicuspid AoV without stenosis. Stress: 13.42 Mets, no evidence of ischemia. PFTS: Normal. Nightly history of episodic numbness in left shoulder and arm relieved by movement. We did discuss potential for positioning related issues due to this. Discussed C5/C6 (says arm is not related). Will glide 3 and keep him neutral and inline for intubation.
--- NOTE | 2025-07-18 07:15 | DI.RAD_ITS ---
Exam(s) XR RETROGRADE IN OR EXAM: XR RETROGRADE IN OR CLINICAL HISTORY: stones TECHNIQUE: 2D and realtime digital imaging was performed. CONTRAST MATERIAL: Refer to procedure report. COMPARISON: CT CT ABDOMEN PELVIS WO from 06/10/2025 FINDINGS: Fluoroscopy was provided for Dr. Anthony during the performance of a retrograde evaluation of the renal collecting system. Please refer to the procedure report for complete details. Ka,r=3.72 mGy IMPRESSION: RADIATION DOSE DELIVERED: 0.0 0.0 0
[2025-07-18] MEDS: ceFAZolin 2 GM/50 ML BAG IVPB (07:48)
[2025-07-18] MEDS: Lidocaine 2% Jelly 6 ML SYR (08:13)
[2025-07-18] MEDS: Omnipaque 300 MG/ML 50 ML BTL (08:16)
--- NOTE | 2025-07-18 09:03 | W.PM.DSUDISC ---
Date of service: 07/18/25 Discharge Plan Disposition Patient Disposition: Home Condition: Stable Discharge Details Reason For Visit: cystoscopy with laser lithotripsy of bladder stone Attending Provider: Kingsley Anthony Primary Care Provider: Jono Timmons Home Meds and New Rx's Prescriptions: New tramadol 50 mg tablet 50 mg PO Q6H MDD 4 PRN (Reason: pain) Qty: 12 0RF No Action amoxicillin 500 mg tablet 2,000 mg PO ONCE Qty: 4 1RF Rx Instructions: For dental tamsulosin [Flomax] 0.4 mg capsule 0.8 mg PO DAILY Qty: 180 3RF albuterol sulfate [Ventolin HFA] 90 mcg/actuation HFA aerosol inhaler 2 puff Inhalation Q6H PRN Qty: 2 6RF Discharge Instructions Additional Instructions: no need to strain urine followup appt to have baron catheter removed in 2 to 3 days keep followup appt that is already scheduled Activity:: Activity as Tolerated Shower/Bathe:: 24 hours Diet:: As Tolerated Discharge Orders Discharge Orders: Discharge Order (Routine); Ordered 07/18/25 Ordered By: Kingsley Anthony DS: Diagnosis Discharge Diagnosis (1) Gross hematuria: Status: Acute (2) Bladder stones: Status: Acute
--- NOTE | 2025-07-18 09:07 | W.PM.OP ---
Operative Note Operative Note PRE-OP DIAGNOSIS: Gross hematuria POST-OP DIAGNOSIS: same Bladder stones PROCEDURE: cystoscopy, bilateral retrograde pyelogram, holmium laser lithotripsy of bladder stones SURGEON: Kingsley Anthony ANESTHESIA TYPE: Local By Surgeon and General LMA/ETT Refer to Anesthesia Record ESTIMATED BLOOD LOSS: 5 PATHOLOGY: other (bladder stones for chemical analysis) COMPLICATIONS: None Patient was transported to: PACU Patient's condition: stable Implants: 16 pakistani baron catheter with 10 cc sterile water in balloon Indications: This is a 64-year-old gentleman who has a history of lower urinary tract symptoms. He recently had an episode of gross hematuria. He was evaluated with a noncontrast CT scan which identified multiple stones within his bladder. The absence of a renal mass was confirmed with renal ultrasound and with MRI. He presents now for cystoscopy with bilateral retrograde pyelogram to complete his hematuria workup. He is interested in having his bladder stones addressed under this anesthetic. Findings: Bladder heavily trabeculated Three large stones in bladder (up to 2 cm) Procedure Description: The patient was given IV antibiotics and brought to the operating room on 07/18/2025. After successful induction of general anesthesia, he was placed in the dorsal lithotomy position. His genitalia was prepped and draped. 2% Xylocaine jelly was instilled into the urethra to act as a local anesthetic. The 22 Guinean rigid cystoscope was passed through the urethra into the bladder. The urethra and bladder were inspected with the 30 degree lens. The pendulous, bulbar and membranous urethra all appeared normal with no strictures. The prostatic urethra showed significant lateral lobe enlargement with a very small median lobe of the prostate. The bladder neck was entered and the bladder mucosa was inspected. The bladder was heavily trabeculated. No papillary or nodular lesions were seen, but there were 3 large stones within the bladder. The stones appeared smooth and measured up to 2 cm in largest dimension. Each ureteral orifice was then cannulated with a 5 Guinean access catheter. Retrograde pyelograms were obtained by injecting Omnipaque through the access catheter under fluoroscopic guidance. No filling defects were seen in either ureter. Both ureters drained promptly on 5-minute drainage films. We then turned our attention to the bladder stones. The stones were treated with a 972 holmium laser fiber. We used fragmenting settings to break the stones into smaller pieces. The pieces were extracted and sent to the lab for chemical analysis. At the completion of the procedure, I did not see any additional stone fragments in the bladder. Because of the amount of trauma during the surgery, I elected to place a urethral catheter. I passed a 16 Guinean Baron through the urethra into the bladder. The catheter balloon was inflated with 10 cc of sterile water and the catheter was hooked to gravity drainage. The patient tolerated this procedure well with no complications. Date of Procedure: 07/18/25
[2025-07-18] MEDS: Phenazopyridine 200 MG TAB PO (09:49)
[2025-07-18] MEDS: traMADol 50 MG TAB PO (12:26)
--- NOTE | 2025-07-20 08:48 | W.ANESPOSTOP ---
Postoperative Evaluation Date, Time and Location Date Performed: 07/20/25 Time Performed: 08:48 Patient Location: PACU Vital Signs Most Recent Imported Vital Signs: Most Recent Vital Signs Temp Pulse Resp BP Pulse Ox 36.3 C L 54 L 16 143/77 H 97 07/18/25 12:49 07/18/25 12:49 07/18/25 12:49 07/18/25 12:49 07/18/25 12:49 Pain Score Most Recent Pain Score: Most Recent Pain Score Pain Level 3 07/18/25 12:49 Assessment Mental Status: Awake (Alert & Oriented to Patient Baseline) Airway and Respiratory Function: Patent airway with normal (patient baseline) respiratory exam Cardiovascular Function: Hemodynamically Stable Hydration Status: Adequately Hydrated Nausea & Vomiting: No Nausea or Vomiting Pain: Pain is tolerable per patient Peripheral Nerve Block: Patient did not receive a nerve block Postoperative Comments:: Patient seen DOS, not charted on in error. Patient appropriate for discharge.
== END 2025-07-18 13:10 | disposition home or self-care (01) ==
PROVIDERS: PCP Nurse Practitioner Family; Visit Provider Urology
PROC: 0TBB8ZZ Excision of Bladder, Via Natural or Artificial Opening Endoscopic (ICD-10-PCS; CPT 52317; principal; 2025-07-18 07:30)
DX: N21.0 Calculus in bladder (principal); R31.0 Gross hematuria
CPT/HCPCS: 52317; 74420; 82365; J0131; J0690; J1100; J2003; J2250; J2405; J2704; J3475; Q9967

== ENCOUNTER 2025-07-27 15:17 | Outpatient (CLI) | payer BC, SELFPAY | END 2025-07-27 15:18 | disposition home or self-care (01) | LOC: LBO 15:17 | PROVIDERS: PCP Nurse Practitioner Family; Visit Provider Nurse Practitioner Gerontology | DX: R31.0 Gross hematuria (principal); R39.9 Unspecified symptoms and signs involving the genitourinary system | CPT/HCPCS: 36415; 84153; 87086 ==

== ENCOUNTER 2025-08-22 15:17 | Outpatient (CLI) | payer BC, SELFPAY ==
--- NOTE | 2025-08-22 15:00 | DI.RAD_ITS ---
Exam(s) XR HIP RT AP LAT ONLY EXAM: XR HIP RT AP LAT ONLY INDICATION: 1 year follow up. COMPARISON: CR XR HIP RT COMPLETE AP PELVIS from 09/02/2024 TECHNIQUE: 2D digital imaging was performed. Two views. FINDINGS: Stable alignment of the right hip prosthesis. No abnormal surrounding bony lucencies. DATA REPOSITORY: RADIATION DOSE DELIVERED:
== END 2025-08-22 15:18 | disposition home or self-care (01) ==
LOC: DIORS 15:17
PROVIDERS: PCP Nurse Practitioner Family; Visit Provider Physician Assistant
DX: Z96.641 Presence of right artificial hip joint (principal)
CPT/HCPCS: 73502